=== PATIENT | female | born 1955 | race Two or more races ===

== ENCOUNTER 2024-11-20 10:09 | Inpatient (IN) | payer OTHER ==
[2024-11-20] VITALS (41 sets, daily range): BP systolic 54–147; BP diastolic 33–75; PULSE 61–92; RESP 10–20; TEMP 92.8–98.1; O2SAT 96–100
[~2024-11-20] VITALS: Ht 154.9 cm; Wt 104.7 kg
[2024-11-20] MEDS: TRANEXAMIC ACID 20 ML ONE (09:59)
[~2024-11-20 10:09] MED LIST: ALEN70TA74 PO; ALPR1TAB7 PO; AMLO1TAB23 PO; ASPI81CH59 PO; ATOR40TA52 PO; BISO5TAB44 PO; CHOL100067 PO; CYCL-837 PO; DOCU-94 PO; FAMO-68 PO; FAMO20TA10 GT; FLUT1AER5 IN; LEVO-849 PO; LIOT5TAB31 PO; LORA-622 PO; MONT-8 OR; PANC3000 PO
[2024-11-20] MEDS ORDERED: HYDROmorphone HCL 2 MG/ML VL/or syr ONE (10:56)
[2024-11-20] MEDS ORDERED: fentaNYL CITRATE 5 ML ONE (10:57)
[2024-11-20] MEDS ORDERED: MIDAZOLAM HCL 2MG/2ML 2ml VIAL (1mg/ml) ONE ×2 (10:57→14:19)
[2024-11-20] MEDS ORDERED: fentaNYL CITRATE 100 MCG/2 ML VL ONE (10:57)
[2024-11-20] MEDS: VANCOMYCIN HCL 1000 MG VL ONE (10:57)
--- NOTE | 2024-11-20 11:14 | DVHHP2 ---
Admitting Diagnosis: cervical spinal stenosis History of Present Illness Home Meds Reported Medications Docusate Sodium (Colace) 100 Mg Cap, 100 MG PO DAILY, CAP 11/19/24 Cyclobenzaprine Hcl (Cyclobenzaprine Hcl) 5 Mg Tab, 5 MG PO DAILY, TAB 11/19/24 Aspirin (Aspirin Low Dose) 81 Mg Chw, 81 MG PO DAILY, TAB.CHEW 11/19/24 Famotidine (PEPCID TABLET) 20 Mg Tb, 40 MG GT, TAB 11/19/24 Famotidine (Gnp Acid On Car Supervisor Maximum) 20 Mg Tab, 20 MG PO, TAB 11/19/24 Atorvastatin Calcium (ATORVASTATIN CALCIUM) 40 Mg Tab, 40 MG PO DAILY, TAB 11/19/24 Fluticasone-Salmeterol (Wixela Inhub 100-50 Mcg/Dose) 1 Aer Aer, IN, AER 11/19/24 Pancreatic Enzymes (CREON) 3,000 Unit Cap, 6000 UNIT PO TID, CAP 11/19/24 Cholecalciferol (D3) 250 Mcg Cap, 125 MCG PO DAILY, CAP 11/19/24 Alprazolam (Alprazolam) 1 Mg Tab, 1 MG PO QPM, TAB 11/19/24 Montelukast Sodium (MONTELUKAST SODIUM) 10 Mg Tab, 10 MG OR DAILY, TAB 11/19/24 Bisoprolol Fumarate (Bisoprolol Fumarate) 5 Mg Tab, 10 MG PO DAILY, TAB 11/19/24 Loratadine (Claritin) 10 Mg Tab, 10 MG PO DAILY, TAB 11/19/24 Amlodipine Besylate (Amlodipine Besylate) 10 Mg Tab, 10 MG PO DAILY, TAB 11/19/24 Alendronate Sodium (Alendronate Sodium) 70 Mg Tab, 70 MG PO Q7D, TAB 11/19/24 Liothyronine Sodium (Liothyronine Sodium) 5 Mcg Tab, 5 MCG PO UD, TAB Take 2 tabs ,W,F and 1 tab , ,Sat 11/19/24 Levothyroxine Sodium (SYNTHROID TABLET) 100 Mcg Tb, 100 MCG PO DAILY, TAB 11/19/24 Quality of Neck Pain: Aching, Burning, Sharpness Associated Symptoms of Neck Pa: Numbness in upper extremi, Tingling in upper extremi, Tingling in fingers, Sensory loss Quality of Back Pain: Aching, Burning, Sharpness Review of Systems Constitutional: No symptom reported Ears, Nose, & Throat: No symptom reported Eyes: No symptom reported Pulmonary/Respiratory: No symptom reported Cardiovascular: No symptom reported Gastrointestinal: No symptom reported Genitourinary: No symptom reported Musculoskeletal: Neck pain Skin: No symptom reported Psychiatric: No symptom reported Endocrine: No symptom reported Hemotologic/Lymphatic: No symptom reported H&P Exam Vital Signs Vital Signs Date Time Temp Pulse Resp B/P (MAP) Pulse Ox O2 Delivery O2 Flow Rate FiO2 11/20/24 10:35 97.3 78 16 143/57 (85) 97 97.3 General Appeara: Well developed, Well nourished, Normal Appearance Head Exam: Normal inspection Eye Exam: bilateral eye Normal inspection, bilateral eye PERRL, bilateral eye EOMI Ear Exam: bilateral ear Auricle normal, bilateral ear Canal normal, bilateral ear TM normal Nasal Exam: Normal inspection Mouth: Normal Inspection Pulmonary/Respiratory: Normal inspection, Normal breath sounds, Chest non- tender, Lungs clear Cardiovascular/Chest: Normal inspection, Regular rate, Normal Rhythm Abdominal Exam: Normal bowel sounds, Soft, No tenderness, No hepatospenomegaly, No masses Rectal Exam: Deferred Back Exam: Normal inspection Pelvic Exam: Not done Male Genital Exam: Not done Shoulder Exam: Normal inspection, Non-tender, Normal ROM Elbow/Forearm Exam: Normal inspection, Non-tender, Normal ROM Wrist Exam: Normal inspection, Non-tender, Normal ROM Hand Exam: Normal inspection, Non-tender, Normal ROM Hip exam: Normal inspection, Non-tender, Normal range of motion Legs: bilateral leg non-tender, bilateral leg normal inspection, bilateral leg normal range of motion, bilateral leg no evidence of injury Knees: bilateral knee non-tender, bilateral knee normal inspection, bilateral knee normal range of motion, bilateral knee no evidence of injury Ankle Exam: bilateral ankle Normal inspection, bilateral ankle Non-tender, bilateral ankle Normal range of motion, bilateral ankle No evidence of injury Foot: bilateral foot non-tender, bilateral foot normal inspection, bilateral foot normal range of motion, bilateral foot no evidence of injury Tendon/ Neuro: Motor deficit, Sensory deficit 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: Normal hearing, Normal speech, PERRL Motor/Sensory: Weak motor strength RUE, Weak motor strength LUE Deep Tendon Ref: All intact Neuro/Mental St: Alert, Oriented Appearance: Appropriate appearance, Appropriate insight Eye contact/ Speech: Cooperative, Good eye contact, Normal speech Thoughts/Psych: Normal thought pattern Coordination/Gait: Abnormal gait Skin Exam: Normal inspection Labs/Xrays MRI cervical spine reeals multi level degenerative disc disease with stenosis at C3/4 and C4/5 Assessment/Plan Primary Diagnosis cervical spinal stenosis with myeloradiculopathy Plan admit for elective cervical spine surgery Plan discussed with: Patient CLARICE TAYLOR MD Nov 20, 2024 11:14
[2024-11-20] MEDS ORDERED: PROPOFOL 10 MG/ML 20 ML IV ONE (12:06)
[2024-11-20] MEDS ORDERED: ONDANSETRON HCL 4 MG/2 ML VIAL ONE (12:06)
[2024-11-20] MEDS ORDERED: NITROGLYCERIN 0.4 MG SL TAB SL PRN (13:30)
[2024-11-20] MEDS ORDERED: ACETAMINOPHEN 325 MG TAB PO PRN (13:30)
[2024-11-20] MEDS ORDERED: MORPHINE SULFATE INJ 2 MG/ml SYRG IV PRN ×2 (13:30)
--- NOTE | 2024-11-20 13:43 | DVHOP2 ---
Operative Report - 2 Report Details Date: 11/20/24 Preop Diagnosis: cervical spinal stenosis at C3/4 and 4/5 with severe myeloradiculopathy Postop Diagnosis: same as pre op Surgeon: Zaheer Banerjee MD Inspector Precision Assembly: Celia Tobias NP Anesthesiologist: tania Anesthesia: General Consent: The patient was informed of the risks and benefits of the procedure. These include but are not limited to complications of anesthesia, postoperative infection, incomplete relief of symptoms, recurrence of symptoms, damage to blood vessels, nerves and tendons, deep venous thrombosis, pulmonary embolism and possible need for repeat surgery in the future. Name of Procedure Performed see detailed note Procedure Details Procedure Details: Pre Op Diagnosis: Cervical Degenerative Disk Disease and Spinal Stenosis at C3/4 and C4/5 Causing incapacitating neck pain, myelo-radiculopathy and progr essive neurologic deficit Post Op Diagnosis: same Procedure: Cervical 3 to 4 anterior cervical discectomy with Cervical 3-4 foraminotomies and facetectomies to decompression the spinal canal and Cervical 4 nerve roots Cervical 4 to 5 anterior cervical discectomy with Cervical 4-5 foraminotomies and facetectomies to decompression the spinal canal and Cervical 5 nerve roots Cervical 3-5 anterior cervical Fusion Cervical 3-5 anterior cervical instrumentation with Xtant Irix-C standalone fixation devices Cervical 3-4 placement of allograft prosthetic device Cervical 4-5 placement of allograft prosthetic device Surgeon: Zaheer Banerjee MD Anesthesia: General Assist: Celia Tobias NP Fluids and EBL: see anesthesia note Procedure Note: The patient was seen in the Pre-anesthesia Care Unit and the site of the incision was initialed by me with a felt tipped marker. All questions by the patient were answered to the satisfaction of the patient and the chart was reviewed. The patient was taken to the operating room and placed supine on the [facility] Flat top table. General anesthesia was induced. Neuromonitoring leads were placed. A rolled towel was placed between the shoulder blades to hyperextend out the chest which will allow better exposure of the cervical spine. Halter traction to 10 pounds was placed. The arms were padded and adducted to the patients side making sure all pulses in the hands were present. Tape traction was undertaken on the shoulders to give us better radiographic exposure of the distal cervical spine. A gel-pad was placed under the occiput and 5 degrees of extension was placed on the neck without adverse effects to the patient. The anterior neck was prepped and draped. Pre-operative antibiotics were given 30 minutes prior to the start of the procedure. A c-arm fluoroscope was used to linda out the incision site. Due to this being a two level case, and in order to keep the incision aesthetically pleasing by making it parallel to the skin creases, a transverse incision was chosen from the midline to the anterior border of the sternocleidomastoid at the level of the thyroid cartilage. At this time, a time out was taken per usual protocol. Next an incision was made through the skin with a 15 blade scalpel through the subcutaneous tissue down to the platysma. Self-retainers were placed. The platysma was incised along the longitudinal border with a Metzenbaum scissors. Blunt dissection was made through the deep cervical and pre-tracheal fascia taking care to protect the carotid sheath laterally and the trachea/esophagus medially. The dissection was carried down to the pre- vertebral fascia. Any crossing vessels were ligated using a vascular clip or coagulated with a bovie. An esophageal retractor was next used to retract the trachea/esophagus and a bent [address] through the anterior annulus of the cervical disk and a lateral C-arm fluoroscopic image was taken to confirm that we were at the correct level. Next, bovie electrocautery was used to expose the bones of cervical 3,4,5, and bipolar electrocautery was used to lift up the Longus colli and capitus muscles. Self Retainers were used to retract the longus colli and capitus muscles bilaterally as well as the trachea/esophagus to the right and the carotid sheath to the left. Smooth thin retractors were placed proximally and distally and a needle was placed again in the anterior annulus of the disk and an image taken to confirm the correct level. At this point, an 11 blade scalpel incised the anterior annulus of the cervical 3/4 and 4/5 disks. Next, straight and curved curettes removed the remainder of the disks all the way down to the posterior longitudinal ligament. Carefully, a Kerison number one rongeur incised the posterior longitudinal ligament at the lateral end of the above disks and using a micro, blunt tip nerve hook to separate the posterior longitudinal ligament from the dura, alternating 1 mm and 2 mm Kerison rongeurs removed the posterior longitudinal ligament. Next, Kerison 1mm and 2 mm rongeurs were alternated to get under the uncinate processes and undercut them to perform foraminotomies and facetectomies at the cervical 3/4 and 4/5 levels to decompress the central canal and cervical 4, and 5 nerve roots. Next, the c-arm fluoroscope was wheeled into the field and a lateral image was obtained. Increasing size graft trials were used starting at a 5 mm thick size until the proper tension in the disk space and height quaker obtained. We then placed final free standing cages at C3/4 and 4/5. Both final grafts were 7mm thick. X-tant Iris-C standalone devices were chosen. Satisfactory placement was confirmed in the AP and lateral views using a C-arm fluoroscope. Copious irrigation of the wound with sterile saline and all bleeding was controlled before closure initiated. At this point, a 10 [place] round Esvin Drain was place deep to the platysma muscle and the Platysma was approximated with one interrupted 0-Vicryl suture. The subcutaneous tissue was closed with interrupted 2-0 vicryl sutures and the skin was closed with colt. Sterile dressings were placed and a cervical collar placed, the patient extubated, transferred to the stretcher and taken to the Recovery Room in unremarkable condition. Condition Stable Disposition Still a Patient ZAHEER BANERJEE MD Nov 20, 2024 13:43
[2024-11-20] MEDS ORDERED: Liothyronine Sodium 5 MCG PO SCH (13:45)
[2024-11-20] MEDS ORDERED: SUGAMMADEX 200mg/2ml Vial (100MG/ML) IV ONE (14:04)
--- NOTE | 2024-11-20 14:33 | PRN ---
Misceleneous Note Note Note Patient found to have extremely thin skin, prone to tears. Several sites of irritation to the chest, neck, and skin tears caused by removal or surgical Ioban. one large site to the left upper chest closed with colt. All regular adhesive dressing removed and replaced with 4x4 and paper tape. Some swelling noted to neck right medial side, Called Dr Banerjee to return to bedside to assess. DR Banerjee returned within a few minutes and decided to removed a few colt. No active bleeding at incision when assessed. SANTI drain remains intact. Discussion between Dr Banerjee and Dr Rouse (Anesthesia) determined that for airway safety the patient will remain intubated overnight and go to the ICU. P ACU made aware and warehouse helper aware. Apply ice to neck 20 min per hour x 6. Call with questions Shiva Tobias [facility] Orthopaedic Spine Surgery nurse practitioner For Dr Francisco Banerjee Cell FOR ICU NURSE STAFF ONLY for concerns or questions. Office Patient was examined, chart reviewed, labs evaluated, and diagnostic studies and findings analyzed. Case was discussed with Dr. Zaheer Banerjee who formulated the plan of care. This medical document was created using an electronic medical record system with [employer] computerized dictation system. Although this document has been carefully reviewed, there might still be some phonetic and typographical errors. These areas are purely typographical due to imperfections of the software programs, and do not reflect any compromise in the patient's medical care. CARLOS TOBIAS NP Nov 20, 2024 14:33
--- NOTE | 2024-11-20 14:58 | DVH ---
XY C ARM FLUOROSCOPY UP TO 60MIN, XY CERVICAL SPINE 3V, HISTORY: CERVICAL SPINE TECHNICAL DATA: 15 intraoperative fluoroscopic spot images were obtained of the cervical spine. COMPARISON: None FINDINGS/IMPRESSION: C-arm fluoroscopic images were obtained for anatomic localization. The images are of low resolution b ut demonstrate instrumentation over the cervical spine. Total fluoroscopy time was 39.7 seconds. Plea se see the operative report for further details.
[2024-11-20] MEDS: fentaNYL Drip 2500mCg/250mlNS 250 ML IV ONE (15:00)
[2024-11-20] MEDS: MIDAZOLAM DRIP 50 mg/50mL 50 ML IV SCH (15:00)
[2024-11-20] MEDS: MIDAZOLAM DRIP 50 mg/50mL 50 ML IV ONE (15:00)
[2024-11-20] MEDS: NOREPINEPHRINE 8 MG/250ML KIT 250 ML IV ONE (15:14)
[2024-11-20] MEDS: NOREPINEPHRINE 8 MG/250ML KIT 250 ML IV SCH (15:20)
[2024-11-20 15:29] LABS: Base Excess -9.4 mmol/L (-2.0-3.0)
[2024-11-20] MEDS: fentaNYL Drip 2500mCg/250mlNS 250 ML IV SCH (16:30)
--- NOTE | 2024-11-20 18:08 | DVHINCON2 ---
Date Seen: Nov 20, 2024 Referring Physician Orthopedic spine surgery. Reason for Consultation Acute hypoxic respiratory failure postoperatively remains intubated. History of Present Illness To be noted patient's intubated and sedated most of the history obtained from the chart and from spine surgery note. This is a 69-year-old female with a known history of COPD, hypertension, dyslipidemia, hypothyroidism, chronic neck myeloradiculopathy currently elective surgery for that in which C3-4 see if for five spine surgery was done. After the surgery patient has developed some neck swelling eventually patient was recommended to be remained intubated. Patient is currently in D OU. Plan of care discussed with the bedside RN. Past Medical History COPD Hypertension Dyslipidemia Cervical myeloradiculopathy. Allergies: Coded Allergies: Ciprofloxacin (Verified Allergy, Unknown, 11/19/24) Codeine (Verified Allergy, Unknown, 11/19/24) Diphenhydramine (Verified Allergy, Unknown, 11/19/24) Erythromycin (Verified Allergy, Unknown, 11/19/24) Penicillins (Verified Allergy, Unknown, 11/19/24) Tramadol (Verified Allergy, Unknown, 11/19/24) Home Meds Reported Medications Docusate Sodium (Colace) 100 Mg Cap, 100 MG PO DAILY, CAP 11/19/24 Cyclobenzaprine Hcl (Cyclobenzaprine Hcl) 5 Mg Tab, 5 MG PO DAILY, TAB 11/19/24 Aspirin (Aspirin Low Dose) 81 Mg Chw, 81 MG PO DAILY, TAB.CHEW 11/19/24 Famotidine (PEPCID TABLET) 20 Mg Tb, 40 MG GT, TAB 11/19/24 Famotidine (Gnp Acid Rn Bsn Maximum) 20 Mg Tab, 20 MG PO, TAB 11/19/24 Atorvastatin Calcium (ATORVASTATIN CALCIUM) 40 Mg Tab, 40 MG PO DAILY, TAB 11/19/24 Fluticasone-Salmeterol (Wixela Inhub 100-50 Mcg/Dose) 1 Aer Aer, IN, AER 11/19/24 Pancreatic Enzymes (CREON) 3,000 Unit Cap, 6000 UNIT PO TID, CAP 11/19/24 Cholecalciferol (D3) 250 Mcg Cap, 125 MCG PO DAILY, CAP 11/19/24 Alprazolam (Alprazolam) 1 Mg Tab, 1 MG PO QPM, TAB 11/19/24 Montelukast Sodium (MONTELUKAST SODIUM) 10 Mg Tab, 10 MG OR DAILY, TAB 11/19/24 Bisoprolol Fumarate (Bisoprolol Fumarate) 5 Mg Tab, 10 MG PO DAILY, TAB 11/19/24 Loratadine (Claritin) 10 Mg Tab, 10 MG PO DAILY, TAB 11/19/24 Amlodipine Besylate (Amlodipine Besylate) 10 Mg Tab, 10 MG PO DAILY, TAB 11/19/24 Alendronate Sodium (Alendronate Sodium) 70 Mg Tab, 70 MG PO Q7D, TAB 11/19/24 Liothyronine Sodium (Liothyronine Sodium) 5 Mcg Tab, 5 MCG PO UD, TAB Take 2 tabs M,W,F and 1 tab , ,Sat 11/19/24 Levothyroxine Sodium (SYNTHROID TABLET) 100 Mcg Tb, 100 MCG PO DAILY, TAB 11/19/24 Current Medications Current Medications Medications (Trade) Dose Ordered Sig/Garrick Route PRN Reason Start Time Stop Time Status Last Admin Dextrose/Sodium Chloride 1,000 ml @ 100 mls/hr Q10H IV 11/20/24 13:30 Ondansetron HCl (Zofran) 4 mg Q4HP PRN IV NAUSEA / VOMITING 11/20/24 13:30 Acetaminophen (Tylenol Tablet) 650 mg Q6HP PRN PO MILD PAIN (1-3 PAIN SCALE) 11/20/24 13:30 Acetaminophen/ Hydrocodone Bitart ([place]lin 10/325MG Tab) 1 tab Q6HP PRN PO MODERATE PAIN (4-6 PAIN SCALE) 11/20/24 13:30 Morphine Sulfate 1 mg Q4HP PRN IV SEVERE PAIN (7-10 PAIN SCALE) 11/20/24 13:30 Cyclobenzaprine HCl (Flexeril Tablet) 10 mg TID PO 11/20/24 14:00 Docusate Sodium (Colace Capsule) 100 mg BID PO 11/20/24 22:00 11/20/24 15:29 DC Cefazolin Sodium 50 ml @ 100 mls/hr Q8HR IV 11/20/24 14:00 11/22/24 06:29 Nitroglycerin (Ntrostat Sublingual) 0.4 mg Q5MINP PRN SL FOR CHEST PAIN 11/20/24 13:30 Morphine Sulfate 2 mg Q30M PRN IV FOR CHEST PAIN 11/20/24 13:30 Docusate Sodium (Colace Capsule) 100 mg DAILY PO 11/21/24 10:00 Levothyroxine Sodium (Synthroid Tablet) 100 mcg DAILY PO 11/21/24 10:00 Loratadine (Claritin Tablet) 10 mg DAILY PO 11/21/24 10:00 Montelukast Sodium (Singulair Tablet) 10 mg DAILY PO 11/21/24 10:00 Patient Own Medication 10 mg DAILY PO 11/21/24 10:00 UNV Patient Own Medication 10 mg DAILY PO 11/21/24 10:00 Patient Own Medication 5 mcg UD PO 11/20/24 13:45 Amlodipine Besylate (Norvasc Tablet) 10 mg DAILY PO 11/21/24 10:00 Midazolam HCl 50 ml @ 1 mls/hr Q24H IV 11/20/24 15:00 Fentanyl Citrate 250 ml @ 2.5 mls/hr Q24H IV 11/20/24 15:00 Norepinephrine Bitartrate 250 ml @ 3.75 mls/hr Q24H IV 11/20/24 15:15 11/20/24 15:20 Review of Systems 12 review of system can not be obtained as patient is currently intubated and sedated. 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 Labs/Diagnostic Data Labs Test 11/20/24 15:23 Range/Units Blood Gas Specimen Type Arterial Blood Gas Sample Site Arterial line Blood Gas Patient Temperature 37.0 Arterial Blood Date Drawn [id number] Arterial Blood pH 7.114 *L 7.350-7.450 Arterial Blood Partial Pressure CO2 66.2 *H 32.0-45.0 mmHg Arterial Blood Partial Pressure O2 161.5 H 83.0-108.0 mmHg Arterial Blood HCO3 20.7 L 21.0-28.0 mmol/L Arterial Blood Oxygen Saturation 98.1 H 94.0-98.0 % Arterial Blood Base Excess -9.4 L -2.0-3.0 mmol/L Arterial Blood Oxyhemoglobin 94.0 94.0-98.0 % Arterial Blood Carboxyhemoglobin 3.8 H 0.5-1.5 % Arterial Blood Methemoglobin 0.4 0.0-1.5 % Jethro Test N/a Blood Gas Total Hemoglobin 12.60 12.0-16.0 g/dL Blood Gas Set Respiration Rate 10.0 Blood Gas Modality Vent - ac FiO2 % 50.0 Blood Gas Tidal Volume 400.0 Blood Gas PEEP or CPAP 5.0 Blood Gas Critical Value Read Back Yes Blood Gas Notified Whom Dr. karina de la vega Blood Gas Notified Time [id number] Blood Gas Notified By Rt edinson ga Assessment 69-year-old female with a known history of COPD, hypertension, dyslipidemia, cervical radiculopathy is here for elective surgery. 1. Acute hypoxic respiratory failure requiring continued intubation and sedation secondary to neck edema 2. Acute COPD exacerbation 3. 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 Hypertension 5. Dyslipidemia -continue vent support daily ABG chest x-ray, follow up spine surgery recommendation -pulmonary consultation for vent management Plan discussed with: Other Date of Service: Nov 20, 2024 Billing Provider: LIA MILLER MD Common Visit Codes: NOT BILLABLE LIA MILLER MD Nov 20, 2024 18:08
[2024-11-20] MEDS: D5W/SOD CHLO 0.9% 1,000 ML IV SCH (20:00)
[2024-11-20] MEDS ORDERED: DOCUSATE SOD 100 MG CAP PO SCH (22:00)
[2024-11-20] MEDS: CYCLOBENZAPRINE HCL 10 MG TAB PO SCH (22:00)
[2024-11-20] MEDS: ceFAZolin 1GM/50ML 50 ML IV SCH (22:16)
[2024-11-21] VITALS (95 sets, daily range): BP systolic 81–134; BP diastolic 40–85; PULSE 74–110; RESP 6–26; TEMP 96.4–99.9; O2SAT 89–100
[2024-11-21 03:51] LABS: Hematocrit 36.4 % (36.0-46.0); Hemoglobin 12.4 g/dL (12.2-16.2); Mean Corpuscular Hemoglobin 31.4 pg (28.0-32.0); Mean Corpuscular Volume 92.1 fL (80.0-100.0); Nucleated Red Blood Cells % 0.0 %
[2024-11-21 04:00] LABS: Anion Gap 7 (5-15); Carbon Dioxide 22 mmol/L (20-31); Potassium 4.5 mmol/L (3.5-5.1)
[2024-11-21 04:02] LABS: Calcium 8.0 mg/dL (8.7-10.4); Chloride 116 mmol/L (98-107); Sodium 145 mmol/L (136-145)
[2024-11-21 04:06] LABS: BUN/Creatinine Ratio 13.3 (10.0-20.0); Blood Urea Nitrogen 11 mg/dL (9-23); Glucose 195 mg/dL (74-106)
[2024-11-21 04:07] LABS: Magnesium 1.8 mg/dL (1.6-2.6)
--- NOTE | 2024-11-21 05:26 | DVH ---
CHEST RADIOGRAPH Indication: mechanical ventilation Technique: Single frontal view of the chest was obtained COMPARISON: XR CHEST 2 VIEW on DOS: 11/15/24 FINDINGS: Lines and Tubes: Endotracheal tube is at the level of the thoracic inlet. Recommended advancement by 2 cm. Lungs: Mild pulmonary vascular congestion. Pleura: No effusion. No pneumothorax. Cardiomediastinal contours: Unremarkable. Bones: Unremarkable. IMPRESSION: Endotracheal tube is at the level of the thoracic inlet. Recommended advancement by 2 cm.
[2024-11-21 06:00] LABS: Base Excess -7.2 mmol/L (-2.0-3.0)
[2024-11-21] MEDS: ONDANSETRON HCL 4 MG/2 ML VIAL IV PRN (08:00)
[2024-11-21] MEDS: Bisoprolol Fumarate 10 MG PO SCH (10:00)
[2024-11-21] MEDS: DOCUSATE SOD 100 MG CAP PO SCH (10:00)
[2024-11-21] MEDS ORDERED: PATIENTS OWN MEDICATION (Amlodipine Besylate 10 MG) PO SCH (10:00)
--- NOTE | 2024-11-21 10:59 | DVHPN2 ---
Progress Note - Surgical Date Seen: Nov 21, 2024 Post op day Post op day: 1 Subjective Patient reports: No new complaints, Feels better (RECENTLY EXTUBATED, DOING WELL), Other (intubated sedated in ICU, progressing the extubation per hosp/pulm) Review of Systems: NEURO:Abnormal (occipital headaches, shoulder pain, dixxiness) Objective Vital signs Vital Sign Date Time Temp Pulse Resp B/P (MAP) Pulse Ox O2 Delivery O2 Flow Rate FiO2 11/21/24 10:35 87 20 127/59 (81) 100 30 11/21/24 08:00 Mechanical Ventilator+ 11/21/24 06:15 98.6 209.5 Total Intake and Output 11/20/24 11/20/24 11/21/24 15:00 23:00 07:00 Intake Total 125 ml 167.50 ml 834.0 ml Output Total 0 ml 0 ml 600 ml Balance 125 ml 167.50 ml 234.0 ml Medications Current Medications Medications Dose Ordered Sig/Garrick Route Start Time Stop Time Status Last Admin Dose Admin Dextrose/Sodium Chloride 1,000 ml @ 100 mls/hr Q10H IV 11/20/24 13:30 11/20/24 20:00 100 MLS/HR Ondansetron HCl 4 mg Q4HP PRN IV 11/20/24 13:30 Acetaminophen 650 mg Q6HP PRN PO 11/20/24 13:30 Acetaminophen/ Hydrocodone Bitart 1 tab Q6HP PRN PO 11/20/24 13:30 Morphine Sulfate 1 mg Q4HP PRN IV 11/20/24 13:30 Cyclobenzaprine HCl 10 mg TID PO 11/20/24 14:00 Cefazolin Sodium 50 ml @ 100 mls/hr Q8HR IV 11/20/24 14:00 11/22/24 06:29 11/21/24 05:20 100 MLS/HR Nitroglycerin 0.4 mg Q5MINP PRN SL 11/20/24 13:30 Morphine Sulfate 2 mg Q30M PRN IV 11/20/24 13:30 Docusate Sodium 100 mg DAILY PO 11/21/24 10:00 Levothyroxine Sodium 100 mcg DAILY PO 11/21/24 10:00 Loratadine 10 mg DAILY PO 11/21/24 10:00 Montelukast Sodium 10 mg DAILY PO 11/21/24 10:00 Patient Own Medication 10 mg DAILY PO 11/21/24 10:00 UNV Patient Own Medication 10 mg DAILY PO 11/21/24 10:00 Patient Own Medication 5 mcg UD PO 11/20/24 13:45 Amlodipine Besylate 10 mg DAILY PO 11/21/24 10:00 Midazolam HCl 50 ml @ 1 mls/hr Q24H IV 11/20/24 15:00 Fentanyl Citrate 250 ml @ 2.5 mls/hr Q24H IV 11/20/24 15:00 11/20/24 16:30 2.5 MLS/HR Norepinephrine Bitartrate 250 ml @ 3.75 mls/hr Q24H IV 11/20/24 15:15 11/20/24 15:20 3.75 MLS/HR Laboratory Laboratory Tests 11/21/24 02:52 Test 11/21/24 02:52 Range/Units Serum Glucose 195 H 74-106 mg/dL Examination: GENERAL:Normal (recently extubated. speaking well at this time), HEENT:Normal, NECK:Normal (expected post operative condition, swelling is less to right lateral side.), MSK:Normal, SKIN:Abnormal (skin tears, left anterior neck site colt intact drain intact- DRAIN REMOVED WIHOUT EVENT), NEURO:Normal (no complaints, reports improvment in preop sympt) Problem List/Assessment/Plan Problems: (1) Acute post-operative pain (2) Muscle spasms of neck (3) Endotracheally intubated Assessment and Plan Patient was intubated for airway protection proactively for possible airway/left anterior neck swelling postoperatively overnight- she is extubated as of this assessment. Doing well speaking full sentences, handles secretions. Swelling improved to right lateral neck since surgery date. Patient is able to follow instructions. Pulmonary consult Once extubated and patient is determined to be stable post extubation, the patient may be downgraded Physical therapy to assess and evaluate for safety and recommendations for discharge Advanced diet as tolerated ice chips Call with questions Shiva Tobias [facility] Orthopaedic Spine Surgery nurse practitioner For Dr Francisco Banerjee Office Patient was examined, chart reviewed, labs evaluated, and diagnostic studies and findings analyzed. Case was discussed with Dr. Zaheer Banerjee who formulated the plan of care. This medical document was created using an electronic medical record system with [employer] dictation system. Although this document has been carefully reviewed, there might still be some phonetic and typographical errors. These areas are purely typographical due to imperfections of the software programs, and do not reflect any compromise in the patient's medical care. My Orders My Orders Orders - CARLOS TOBIAS NP Procedure Category Date Status Time Louie Drain To Closed FORD 11/20/24 In Process Suction 14:15 Communication Order ORDERS 11/20/24 Transmitted 14:15 Communication Order ORDERS 11/20/24 Transmitted 14:15 Ice Bags FORD 11/20/24 In Process 14:33 Plan discussed with Plan discussed with: Patient Visit Coding Surgery Date of Service if different f: Nov 20, 2024 Billing Provider: CARLOS TOBIAS NP Surgery Visit Codes: NOT BILLABLE CARLOS TOBIAS NP Nov 21, 2024 10:59
--- NOTE | 2024-11-21 11:04 | DVHINCON2 ---
Date of service: Nov 20, [address] Woodward Reason for Consultation vent management History of Present Illness HPI pt is a 69 yo female pt with h/o htn, hypothyroidism, copd/asthma, Raynaud's disease and arthritis. Pt required cervical vertebral fusion and post-op remains on the vent due to increasing neck swelling: concern for airway protection. Pt transferred to ICU for further management Home Meds Reported Medications Docusate Sodium (Colace) 100 Mg Cap, 100 MG PO DAILY, CAP 11/19/24 Cyclobenzaprine Hcl (Cyclobenzaprine Hcl) 5 Mg Tab, 5 MG PO DAILY, TAB 11/19/24 Aspirin (Aspirin Low Dose) 81 Mg Chw, 81 MG PO DAILY, TAB.CHEW 11/19/24 Famotidine (PEPCID TABLET) 20 Mg Tb, 40 MG GT, TAB 11/19/24 Famotidine (Gnp Acid Neurophysiological Technician Maximum) 20 Mg Tab, 20 MG PO, TAB 11/19/24 Atorvastatin Calcium (ATORVASTATIN CALCIUM) 40 Mg Tab, 40 MG PO DAILY, TAB 11/19/24 Fluticasone-Salmeterol (Wixela Inhub 100-50 Mcg/Dose) 1 Aer Aer, IN, AER 11/19/24 Pancreatic Enzymes (CREON) 3,000 Unit Cap, 6000 UNIT PO TID, CAP 11/19/24 Cholecalciferol (D3) 250 Mcg Cap, 125 MCG PO DAILY, CAP 11/19/24 Alprazolam (Alprazolam) 1 Mg Tab, 1 MG PO QPM, TAB 11/19/24 Montelukast Sodium (MONTELUKAST SODIUM) 10 Mg Tab, 10 MG OR DAILY, TAB 11/19/24 Bisoprolol Fumarate (Bisoprolol Fumarate) 5 Mg Tab, 10 MG PO DAILY, TAB 11/19/24 Loratadine (Claritin) 10 Mg Tab, 10 MG PO DAILY, TAB 11/19/24 Amlodipine Besylate (Amlodipine Besylate) 10 Mg Tab, 10 MG PO DAILY, TAB 11/19/24 Alendronate Sodium (Alendronate Sodium) 70 Mg Tab, 70 MG PO Q7D, TAB 11/19/24 Liothyronine Sodium (Liothyronine Sodium) 5 Mcg Tab, 5 MCG PO UD, TAB Take 2 tabs M,W,F and 1 tab , Thurs,Sat 11/19/24 Levothyroxine Sodium (SYNTHROID TABLET) 100 Mcg Tb, 100 MCG PO DAILY, TAB 11/19/24 Past Medical History Cardiac: HTN Pulmonary: COPD Central Nervous System: No pertinent Hx GI: No pertinent Hx Hemotology/Oncology: No pertinent Hx Hepatobiliary: No pertinent Hx Psychiatric: No pertinent Hx Musculoskeletal: No pertinent Hx Rheumotologic: No pertinent Hx Infectious Disease: No peritnent Hx ENT: No pertinent Hx Renal/: No pertinent Hx Endocrine: No pertinent Hx Dermatology: No pertinent Hx Past Surgical History: Other (cervical fusion) Patient Family History: Arthritis Diabetes mellitus G8 FATHER Glaucoma G8 BROTHER Review of Systems Comments intubated H&P Exam Vital Signs Vital Signs Date Time Temp Pulse Resp B/P (MAP) Pulse Ox O2 Delivery O2 Flow Rate FiO2 11/21/24 10:35 87 20 127/59 (81) 100 30 11/21/24 10:00 Mechanical Ventilator+ 11/21/24 06:15 98.6 209.5 General Appeara: Well developed, Well nourished, Normal Appearance Head Exam: Normal inspection Neck Exam: Other (swelling) Eye Exam: bilateral eye Normal inspection, bilateral eye PERRL Ear Exam: bilateral ear Auricle normal, bilateral ear Canal normal Nasal Exam: Normal inspection Mouth: Normal Inspection Pulmonary/Respiratory: Normal inspection, Normal breath sounds Cardiovascular/Chest: Normal inspection Peripheral Pulses: 4+ carotid (R), 4+ carotid (L) Abdominal Exam: Normal bowel sounds, Soft Labs/Xrays Labs Test 11/21/24 05:55 11/21/24 02:52 11/20/24 15:23 Range/Units Blood Gas Specimen Type Arterial Blood Gas Sample Site Arterial line Blood Gas Patient Temperature 37.0 Arterial Blood Date Drawn [id number] Arterial Blood pH 7.324 L 7.350-7.450 Arterial Blood Partial Pressure CO2 35.5 32.0-45.0 mmHg Arterial Blood Partial Pressure O2 118.8 H 83.0-108.0 mmHg Arterial Blood HCO3 18.0 L 21.0-28.0 mmol/L Arterial Blood Oxygen Saturation 97.7 94.0-98.0 % Arterial Blood Base Excess -7.2 L -2.0-3.0 mmol/L Arterial Blood Oxyhemoglobin 96.2 94.0-98.0 % Arterial Blood Carboxyhemoglobin 0.9 0.5-1.5 % Arterial Blood Methemoglobin 0.6 0.0-1.5 % Jethro Test N/a Blood Gas Total Hemoglobin 12.70 12.0-16.0 g/dL Blood Gas Set Respiration Rate 14.0 Blood Gas Modality Vent - ac FiO2 % 30.0 Blood Gas Tidal Volume 400.0 Blood Gas PEEP or CPAP 5.0 White Blood Count 14.2 H 4.4-10.8 10^3/uL Red Blood Count 3.95 L 4.0-5.20 10^6/uL Hemoglobin 12.4 12.2-16.2 g/dL Hematocrit 36.4 36.0-46.0 % Mean Corpuscular Volume 92.1 80.0-100.0 fL Mean Corpuscular Hemoglobin 31.4 28.0-32.0 pg Mean Corpuscular Hemoglobin Concent 34.1 32.0-36.0 g/dL Red Cell Distribution Width 14.0 11.8-14.3 % Platelet Count 250 140-450 10^3/uL Mean Platelet Volume 8.5 6.9-10.8 fL Neutrophils (%) (Auto) 89.0 H 37.0-80.0 % Lymphocytes (%) (Auto) 5.6 L 10.0-50.0 % Monocytes (%) (Auto) 5.3 0.0-12.0 % Eosinophils (%) (Auto) 0.0 0.0-7.0 % Basophils (%) (Auto) 0.1 0.0-2.0 % Neutrophils # (Auto) 12.6 H 1.6-8.6 10 ^3/uL Lymphocytes # (Auto) 0.8 0.4-5.4 10 ^3/uL Monocytes # (Auto) 0.7 0-1.3 10 ^3/uL Eosinophils # (Auto) 0 0-0.8 10 ^3/uL Basophils # (Auto) 0 0-0.2 10 ^3/uL Nucleated Red Blood Cells 0.0 % Sodium Level 145 136-145 mmol/L Potassium Level 4.5 3.5-5.1 mmol/L Chloride Level 116 H 98-107 mmol/L Carbon Dioxide Level 22 20-31 mmol/L Anion Gap 7 5-15 Blood Urea Nitrogen 11 9-23 mg/dL Creatinine 0.83 0.550-1.02 mg/dL Glomerular Filtration Rate Calc 75 >90 mL/min BUN/Creatinine Ratio 13.3 10.0-20.0 Serum Glucose 195 H 74-106 mg/dL Calcium Level 8.0 L 8.7-10.4 mg/dL Magnesium Level 1.8 1.6-2.6 mg/dL Blood Gas Critical Value Read Back Yes Blood Gas Notified Whom Dr. karina de la vega Blood Gas Notified Time [id number] Blood Gas Notified By [facility]t [place] Assessment/Plan Plan acute hypoxemic resp failure copd/asthma atelectases neck swelling s/p cervical vertebral fusion pt seen and examined on ICU labs and imaging reviewed plan sedation overnight sedation holiday in am precedx ok weaning trail check for cuff leak PS 08/11 abg and parameters cont pain control IV fluids monitor labs renal function prophylaxis dvt proph full code crit care time 35 min Plan discussed with: Other (rn) JANE GAGNON MD Nov 21, 2024 11:04
--- NOTE | 2024-11-21 11:42 | DVHPN2 ---
Progress Note - Dictate Date Seen: Nov 21, 2024 Has the PT tested + for MRSA If YES, has PT been informed?: No Medical Necessity Reason Pt with a Central, PICC or Fol: No vital signs Vital Sign Date Time Temp Pulse Resp B/P (MAP) Pulse Ox O2 Delivery O2 Flow Rate FiO2 11/21/24 11:00 98.8 77 14 118/53 (74) 97 209.8 122/53 (76) 11/21/24 10:35 30 11/21/24 10:00 Mechanical Ventilator+ Total Intake and Output 11/20/24 11/20/24 11/21/24 15:00 23:00 07:00 Intake Total 125 ml 167.50 ml 834.0 ml Output Total 0 ml 0 ml 600 ml Balance 125 ml 167.50 ml 234.0 ml medications Current Medications Medications Dose Ordered Sig/Garrick Route Start Time Stop Time Status Last Admin Dose Admin Dextrose/Sodium Chloride 1,000 ml @ 100 mls/hr Q10H IV 11/20/24 13:30 11/20/24 20:00 100 MLS/HR Ondansetron HCl 4 mg Q4HP PRN IV 11/20/24 13:30 Acetaminophen 650 mg Q6HP PRN PO 11/20/24 13:30 Acetaminophen/ Hydrocodone Bitart 1 tab Q6HP PRN PO 11/20/24 13:30 Morphine Sulfate 1 mg Q4HP PRN IV 11/20/24 13:30 Cyclobenzaprine HCl 10 mg TID PO 11/20/24 14:00 Cefazolin Sodium 50 ml @ 100 mls/hr Q8HR IV 11/20/24 14:00 11/22/24 06:29 11/21/24 05:20 100 MLS/HR Nitroglycerin 0.4 mg Q5MINP PRN SL 11/20/24 13:30 Morphine Sulfate 2 mg Q30M PRN IV 11/20/24 13:30 Docusate Sodium 100 mg DAILY PO 11/21/24 10:00 Levothyroxine Sodium 100 mcg DAILY PO 11/21/24 10:00 Loratadine 10 mg DAILY PO 11/21/24 10:00 Montelukast Sodium 10 mg DAILY PO 11/21/24 10:00 Patient Own Medication 10 mg DAILY PO 11/21/24 10:00 UNV Patient Own Medication 10 mg DAILY PO 11/21/24 10:00 Patient Own Medication 5 mcg UD PO 11/20/24 13:45 Amlodipine Besylate 10 mg DAILY PO 11/21/24 10:00 Midazolam HCl 50 ml @ 1 mls/hr Q24H IV 11/20/24 15:00 Fentanyl Citrate 250 ml @ 2.5 mls/hr Q24H IV 11/20/24 15:00 11/20/24 16:30 2.5 MLS/HR Norepinephrine Bitartrate 250 ml @ 3.75 mls/hr Q24H IV 11/20/24 15:15 11/20/24 15:20 3.75 MLS/HR laboratory and microbiology Laboratory Tests 11/21/24 02:52 Test 11/21/24 02:52 Range/Units Serum Glucose 195 H 74-106 mg/dL Assessment/Plan acute hypoxemic resp failure copd/asthma atelectases neck swelling s/p cervical vertebral fusion pt seen and examined on ICU events improving pt received a dose of decadron awake and following commands labs and imaging reviewed management plan weaning trail check for cuff leak PS 7/5 abg and parameters extubate today incent spirometry cont pain control IV fluids monitor labs renal function prophylaxis dvt proph full code crit care time 35 min Dietary Evaluation Review Comments: 1. If EN/GI accessible, TF, Vital high Protein 45ml/hr 94g Protein, 1080kcal, 903ml free water 2, If EN not feasible and GI unaccessible, TPN per pharmacy to meet at least 75% of her protein and energy needs. 3. Advance to Regular diet after passing EVENT PROMOTIONS COORDINATOR eval Expected Outcomes/Goals: Off Vent, advance to diet Plan discussed with: Other (rn) JANE GAGNON MD Nov 21, 2024 11:42
--- NOTE | 2024-11-21 12:23 | DVH ---
INDICATION: NG tube placement TECHNIQUE: Frontal view of the chest. COMPARISON: XY CHEST PORTABLE on DOS: 11/21/24, XR CHEST 2 VIEW on DOS: 11/15/24 FINDINGS: Endotracheal tube terminates 5.7 cm above the brandy . NG tube is in place with tip below the diaphr agm. The heart and mediastinal contours are grossly unremarkable. There is no evidence of pleural disease. The lungs are clear. The bony structures of the chest are intact without fracture. ACDF h ardware is seen in mid cervical spine. Surgical drain and skin colt are seen on the left neck. IMPRESSION: 1. No evidence of acute disease. 2. Tubes and lines as above.
[2024-11-21] MEDS: LORATADINE 10 MG TAB PO SCH (12:33)
[2024-11-21] MEDS: MONTELUKAST SODIUM 10 MG TAB PO SCH (12:34)
[2024-11-21] MEDS: LEVOTHYROXINE SODIUM 100 MCG TAB PO SCH (12:34)
[2024-11-21] MEDS: HYDROcodone-ACET 10/325MG TAB PO PRN (12:38)
[2024-11-21] MEDS ORDERED: ROCURONIUM 10MG/ML 10ML VIAL IV ONE (13:02)
--- NOTE | 2024-11-21 17:16 | DVHPN2 ---
Subjective Patient is status post extubation. Changes from previous H/P or p: No Changes Objective Vitals Vital Signs Date Time Temp Pulse Resp B/P (MAP) Pulse Ox O2 Delivery O2 Flow Rate FiO2 11/21/24 16:45 92 12 108/49 (68) 97 11/21/24 16:00 Mechanical Ventilator+ 30 30 11/21/24 15:45 99.9 211.8 Intake/Output Intake and Output 11/21/24 07:00 Intake Total 1126.50 ml Output Total 600 ml Balance 526.50 ml Intake Oral 0 ml IV Total 1126.50 ml Output Urine Total 600 ml Drainage Total 0 ml Exam HEENT pupils are reactive Neck is supple CV is S1-S2 regular rate and rhythm Respiratory diminished breath sound bases GI posterior bowel sound Extremity no edema INTERLACER no motor deficit Medications Current Medications Medications Dose Ordered Sig/Garrick Route Start Time Stop Time Status Last Admin Dose Admin Dextrose/Sodium Chloride 1,000 ml @ 100 mls/hr Q10H IV 11/20/24 13:30 11/20/24 20:00 100 MLS/HR Ondansetron HCl 4 mg Q4HP PRN IV 11/20/24 13:30 11/21/24 14:22 4 MG Acetaminophen 650 mg Q6HP PRN PO 11/20/24 13:30 Acetaminophen/ Hydrocodone Bitart 1 tab Q6HP PRN PO 11/20/24 13:30 11/21/24 12:38 1 TAB Morphine Sulfate 1 mg Q4HP PRN IV 11/20/24 13:30 Cyclobenzaprine HCl 10 mg TID PO 11/20/24 14:00 Cefazolin Sodium 50 ml @ 100 mls/hr Q8HR IV 11/20/24 14:00 11/22/24 06:29 11/21/24 15:08 100 MLS/HR Nitroglycerin 0.4 mg Q5MINP PRN SL 11/20/24 13:30 Morphine Sulfate 2 mg Q30M PRN IV 11/20/24 13:30 Docusate Sodium 100 mg DAILY PO 11/21/24 10:00 Levothyroxine Sodium 100 mcg DAILY PO 11/21/24 10:00 11/21/24 12:34 100 MCG Loratadine 10 mg DAILY PO 11/21/24 10:00 11/21/24 12:33 10 MG Montelukast Sodium 10 mg DAILY PO 11/21/24 10:00 11/21/24 12:34 10 MG Patient Own Medication 10 mg DAILY PO 11/21/24 10:00 UNV Patient Own Medication 10 mg DAILY PO 11/21/24 10:00 Patient Own Medication 5 mcg UD PO 11/20/24 13:45 Amlodipine Besylate 10 mg DAILY PO 11/21/24 10:00 Norepinephrine Bitartrate 250 ml @ 3.75 mls/hr Q24H IV 11/20/24 15:15 11/20/24 15:20 3.75 MLS/HR Alprazolam 1 mg HS PO 11/21/24 22:00 Famotidine 40 mg Q24H PO 11/21/24 22:00 Laboratory Results Laboratory Tests 11/21/24 02:52 Chemistry Test 11/21/24 02:52 Calcium Level 8.0 mg/dL (8.7-10.4) L Magnesium Level 1.8 mg/dL (1.6-2.6) Blood Gas Results Test 11/21/24 05:55 Arterial Blood pH 7.324 (7.350-7.450) FiO2 % 30.0 Microbiology Microbiology Date/Time Source Procedure Growth Status 11/20/24 16:00 Nose MRSA Screen - Final Complete Assessment/Plan Assessment/Plan 69-year-old female with a known history of COPD, hypertension, dyslipidemia, cervical radiculopathy is here for elective surgery. 1. Acute hypoxic respiratory failure requiring continued intubation and sedation secondary to neck edema 2. Acute COPD exacerbation 3. 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 Hypertension 5. Dyslipidemia -CPAP trial today extubation today may downgrade to telemetry Plan discussed with: Patient My Orders Orders - LIA MILLER MD Procedure Category Date Status Time *Consult CONS 11/20/24 Verified 18:03 * Dietary Consult CONS 11/20/24 Transmitted 19:05 * Wound Consult CONS 11/20/24 Transmitted 19:05 Chest Portable XY 11/21/24 Resulted 04:00 Abg W/ Co-Ox RT 11/21/24 Logged 04:00 Place Ng ORDERS 11/21/24 Transmitted 10:40 Chest Portable XY 11/21/24 Resulted 10:40 Alprazolam Tablet PHA 11/21/24 In Process (Xanax Tablet) 22:00 Famotidine Tablet PHA 11/21/24 In Process (Pepcid Tablet) 22:00 Date of Service: Nov 21, 2024 Billing Provider: LIA MILLER MD Common Visit Codes: NOT BILLABLE LIA MILLER MD Nov 21, 2024 17:16
[2024-11-21] MEDS: FAMOTIDINE 20 MG TAB PO SCH (21:52)
[2024-11-21] MEDS: ALPRAZolam 0.5 MG TAB PO SCH (21:53)
[2024-11-22] VITALS (49 sets, daily range): BP systolic 99–148; BP diastolic 48–70; PULSE 93–114; RESP 11–17; TEMP 98.7–99.5; O2SAT 90–99
--- NOTE | 2024-11-22 14:14 | DVHPN2 ---
Progress Note - Dictate Date Seen: Nov 22, 2024 Medical Necessity Reason Pt with a Central, PICC or Fol: No vital signs Vital Sign Date Time Temp Pulse Resp B/P (MAP) Pulse Ox O2 Delivery O2 Flow Rate FiO2 11/22/24 14:00 17 93 Nasal Cannula* 2 28 11/22/24 14:00 114 11/22/24 13:00 129/63 (85) 11/22/24 12:00 99.0 99.0 Total Intake and Output 11/21/24 11/21/24 11/22/24 15:00 23:00 07:00 Intake Total 66.25 ml 450 ml 880 ml Output Total 1150 ml Balance 66.25 ml 450 ml -270 ml medications Current Medications Medications Dose Ordered Sig/Garrick Route Start Time Stop Time Status Last Admin Dose Admin Dextrose/Sodium Chloride 1,000 ml @ 100 mls/hr Q10H IV 11/20/24 13:30 11/22/24 05:31 100 MLS/HR Ondansetron HCl 4 mg Q4HP PRN IV 11/20/24 13:30 11/21/24 14:22 4 MG Acetaminophen 650 mg Q6HP PRN PO 11/20/24 13:30 Acetaminophen/ Hydrocodone Bitart 1 tab Q6HP PRN PO 11/20/24 13:30 11/21/24 12:38 1 TAB Morphine Sulfate 1 mg Q4HP PRN IV 11/20/24 13:30 Cyclobenzaprine HCl 10 mg TID PO 11/20/24 14:00 11/22/24 13:49 10 MG Nitroglycerin 0.4 mg Q5MINP PRN SL 11/20/24 13:30 Morphine Sulfate 2 mg Q30M PRN IV 11/20/24 13:30 Docusate Sodium 100 mg DAILY PO 11/21/24 10:00 Levothyroxine Sodium 100 mcg DAILY PO 11/21/24 10:00 11/22/24 10:10 100 MCG Loratadine 10 mg DAILY PO 11/21/24 10:00 11/22/24 10:10 10 MG Montelukast Sodium 10 mg DAILY PO 11/21/24 10:00 11/22/24 10:10 10 MG Patient Own Medication 10 mg DAILY PO 11/21/24 10:00 UNV Patient Own Medication 10 mg DAILY PO 11/21/24 10:00 Patient Own Medication 5 mcg UD PO 11/20/24 13:45 Amlodipine Besylate 10 mg DAILY PO 11/21/24 10:00 11/22/24 10:10 10 MG Norepinephrine Bitartrate 250 ml @ 3.75 mls/hr Q24H IV 11/20/24 15:15 11/20/24 15:20 3.75 MLS/HR Alprazolam 1 mg HS PO 11/21/24 22:00 11/21/24 21:53 1 MG Famotidine 40 mg Q24H PO 11/21/24 22:00 11/21/24 21:52 40 MG laboratory and microbiology Laboratory Tests 11/21/24 02:52 Test 11/21/24 02:52 Range/Units Serum Glucose 195 H 74-106 mg/dL Assessment/Plan acute hypoxemic resp failure copd/asthma atelectases neck swelling s/p cervical vertebral fusion pt seen and examined on ICU events improving pt received a dose of decadron awake and following commands labs and imaging reviewed management plan weaning trail check for cuff leak PS 7/5 abg and parameters extubate today incent spirometry cont pain control IV fluids monitor labs renal function prophylaxis dvt proph full code crit care time 35 min Dietary Evaluation Review Comments: 1. If EN/GI accessible, TF, Vital high Protein 45ml/hr 94g Protein, 1080kcal, 903ml free water 2, If EN not feasible and GI unaccessible, TPN per pharmacy to meet at least 75% of her protein and energy needs. 3. Advance to Regular diet after passing WINDOWS ARCHITECT eval Expected Outcomes/Goals: Off Vent, advance to diet Plan discussed with: Patient, Other JANE GAGNON MD Nov 22, 2024 14:14
--- NOTE | 2024-11-22 15:52 | DVHPN2 ---
Subjective Patient is status post extubation. Swallow evaluation still pending. Patient is downgraded to telemetry but still physically she is in D OU. Changes from previous H/P or p: No Changes Objective Vitals Vital Signs Date Time Temp Pulse Resp B/P (MAP) Pulse Ox O2 Delivery O2 Flow Rate FiO2 11/22/24 14:00 17 93 Nasal Cannula* 2 28 11/22/24 14:00 100 129/64 (85) 11/22/24 12:00 99.0 99.0 Intake/Output Intake and Output 11/22/24 07:00 Intake Total 1396.25 ml Output Total 1150 ml Balance 246.25 ml Intake Oral 30 ml IV Total 1366.25 ml Output Urine Total 1150 ml Exam HEENT pupils are reactive Neck is supple CV is S1-S2 regular rate and rhythm Respiratory diminished breath sound bases GI posterior bowel sound Extremity no edema SHRUB GROWER no motor deficit Medications Current Medications Medications Dose Ordered Sig/Garrick Route Start Time Stop Time Status Last Admin Dose Admin Dextrose/Sodium Chloride 1,000 ml @ 100 mls/hr Q10H IV 11/20/24 13:30 11/22/24 05:31 100 MLS/HR Ondansetron HCl 4 mg Q4HP PRN IV 11/20/24 13:30 11/21/24 14:22 4 MG Acetaminophen 650 mg Q6HP PRN PO 11/20/24 13:30 Acetaminophen/ Hydrocodone Bitart 1 tab Q6HP PRN PO 11/20/24 13:30 11/21/24 12:38 1 TAB Morphine Sulfate 1 mg Q4HP PRN IV 11/20/24 13:30 Cyclobenzaprine HCl 10 mg TID PO 11/20/24 14:00 11/22/24 13:49 10 MG Nitroglycerin 0.4 mg Q5MINP PRN SL 11/20/24 13:30 Morphine Sulfate 2 mg Q30M PRN IV 11/20/24 13:30 Docusate Sodium 100 mg DAILY PO 11/21/24 10:00 Levothyroxine Sodium 100 mcg DAILY PO 11/21/24 10:00 11/22/24 10:10 100 MCG Loratadine 10 mg DAILY PO 11/21/24 10:00 11/22/24 10:10 10 MG Montelukast Sodium 10 mg DAILY PO 11/21/24 10:00 11/22/24 10:10 10 MG Patient Own Medication 10 mg DAILY PO 11/21/24 10:00 UNV Patient Own Medication 10 mg DAILY PO 11/21/24 10:00 Patient Own Medication 5 mcg UD PO 11/20/24 13:45 Amlodipine Besylate 10 mg DAILY PO 11/21/24 10:00 11/22/24 10:10 10 MG Norepinephrine Bitartrate 250 ml @ 3.75 mls/hr Q24H IV 11/20/24 15:15 11/20/24 15:20 3.75 MLS/HR Alprazolam 1 mg HS PO 11/21/24 22:00 11/21/24 21:53 1 MG Famotidine 40 mg Q24H PO 11/21/24 22:00 11/21/24 21:52 40 MG Laboratory Results Laboratory Tests 11/21/24 02:52 Microbiology Microbiology Date/Time Source Procedure Growth Status 11/20/24 16:00 Nose MRSA Screen - Final Complete Assessment/Plan Assessment/Plan 69-year-old female with a known history of COPD, hypertension, dyslipidemia, cervical radiculopathy is here for elective surgery. 1. Acute hypoxic respiratory failure requiring continued intubation and sedation secondary to neck edema , status post extubation 2. Acute COPD exacerbation improved 3. 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 Hypertension 5. Dyslipidemia -swallow evaluation, PT evaluation and treatment, discharge plan per-Orthopedics -Patient is medically stable to be discharged Plan discussed with: Patient My Orders Orders - LIA MILLER MD Procedure Category Date Status Time * Swallow Request ST 11/21/24 Transmitted 19:31 Date of Service: Nov 22, 2024 Billing Provider: LIA MILLER MD Common Visit Codes: NOT BILLABLE LIA MILLER MD Nov 22, 2024 15:52
--- NOTE | 2024-11-22 17:12 | DVHPN2 ---
Progress Note - Surgical Date Seen: Nov 22, 2024 Post op day Post op day: 2 Subjective Patient reports: No new complaints, Feels better Review of Systems: NEURO:Abnormal (Patient claims severe occipital headaches and bilateral extreme shoulder pain) Objective Vital signs Vital Sign Date Time Temp Pulse Resp B/P (MAP) Pulse Ox O2 Delivery O2 Flow Rate FiO2 11/22/24 16:28 14 93 Nasal Cannula* 2 28 11/22/24 16:00 99.4 107 103/61 (75) 99.4 Total Intake and Output 11/21/24 11/21/24 11/22/24 15:00 23:00 07:00 Intake Total 66.25 ml 450 ml 880 ml Output Total 1150 ml Balance 66.25 ml 450 ml -270 ml Medications Current Medications Medications Dose Ordered Sig/Garrick Route Start Time Stop Time Status Last Admin Dose Admin Dextrose/Sodium Chloride 1,000 ml @ 100 mls/hr Q10H IV 11/20/24 13:30 11/22/24 16:09 100 MLS/HR Ondansetron HCl 4 mg Q4HP PRN IV 11/20/24 13:30 11/21/24 14:22 4 MG Acetaminophen 650 mg Q6HP PRN PO 11/20/24 13:30 Acetaminophen/ Hydrocodone Bitart 1 tab Q6HP PRN PO 11/20/24 13:30 11/21/24 12:38 1 TAB Morphine Sulfate 1 mg Q4HP PRN IV 11/20/24 13:30 Cyclobenzaprine HCl 10 mg TID PO 11/20/24 14:00 11/22/24 13:49 10 MG Nitroglycerin 0.4 mg Q5MINP PRN SL 11/20/24 13:30 Morphine Sulfate 2 mg Q30M PRN IV 11/20/24 13:30 Docusate Sodium 100 mg DAILY PO 11/21/24 10:00 Levothyroxine Sodium 100 mcg DAILY PO 11/21/24 10:00 11/22/24 10:10 100 MCG Loratadine 10 mg DAILY PO 11/21/24 10:00 11/22/24 10:10 10 MG Montelukast Sodium 10 mg DAILY PO 11/21/24 10:00 11/22/24 10:10 10 MG Patient Own Medication 10 mg DAILY PO 11/21/24 10:00 UNV Patient Own Medication 10 mg DAILY PO 11/21/24 10:00 Patient Own Medication 5 mcg UD PO 11/20/24 13:45 Amlodipine Besylate 10 mg DAILY PO 11/21/24 10:00 11/22/24 10:10 10 MG Norepinephrine Bitartrate 250 ml @ 3.75 mls/hr Q24H IV 11/20/24 15:15 11/20/24 15:20 3.75 MLS/HR Alprazolam 1 mg HS PO 11/21/24 22:00 11/21/24 21:53 1 MG Famotidine 40 mg Q24H PO 11/21/24 22:00 11/21/24 21:52 40 MG Laboratory Laboratory Tests 11/21/24 02:52 Test 11/21/24 02:52 Range/Units Serum Glucose 195 H 74-106 mg/dL Microbiology Date/Time Source Procedure Growth Status 11/20/24 16:00 Nose MRSA Screen - Final Complete Examination: GENERAL:Normal, HEENT:Normal, NECK:Normal (Wound edges well approximated with colt, patient does have a sore throat and painful swallowing medications ordered pending swallow evaluation), LUNGS:Normal, CVS:Normal, ABDOMEN:Normal, MSK:Normal (Patient has yet to ambulate with physical therapy), SKIN:Normal (Left anterior neck incision closed with colt, drain site remains scant drainage present), NEURO:Normal (Patient states her occipital headache has resolved and she is still having some mild residual bilateral shoulder pain) Problem List/Assessment/Plan Problems: (1) Acute post-operative pain (2) Muscle spasms of neck Assessment and Plan Patient was intubated for airway protection proactively for possible airway/left anterior neck swelling postoperatively overnight- she is extubated as of this assessment. Doing well speaking full sentences, handles secretions. Patient is still having residual sore throat and some difficulty swallowing water. Waiting for an official swallow evaluation. Patient has also not been up to ambulate yet Swelling improved to right lateral neck since surgery date Patient downgraded remains in TIM Side nursing swallow eval done, trouble with water pending official swallow evaluation by speech therapy Physical therapy to assess and evaluate for safety and recommendations for discharge- still pending Advanced diet as tolerated ice chips, Decadron, and Cepacol Call with questions Shiva Tobias [facility] Orthopaedic Spine Surgery nurse practitioner For Dr Francisco Banerjee Office Patient was examined, chart reviewed, labs evaluated, and diagnostic studies and findings analyzed. Case was discussed with Dr. Zaheer Banerjee who formulated the plan of care. This medical document was created using an electronic medical record system with ipsy dictation system. Although this document has been carefully reviewed, there might still be some phonetic and typographical errors. These areas are purely typographical due to imperfections of the software programs, and do not reflect any compromise in the patient's medical care. Plan discussed with Plan discussed with: Patient, Other Visit Coding Surgery Date of Service if different f: Nov 20, 2024 Billing Provider: CARLOS TOBIAS NP Surgery Visit Codes: NOT BILLABLE CARLOS TOBIAS NP Nov 22, 2024 17:12
[2024-11-22] MEDS: THROAT LOZENGES(CEPASTAT) MT PRN (20:13)
[2024-11-23] VITALS (11 sets, daily range): BP systolic 113–144; BP diastolic 67–82; PULSE 86–114; RESP 13–18; TEMP 97–98.3; O2SAT 93–99
--- NOTE | 2024-11-23 12:17 | DVHPN2 ---
Progress Note - Dictate Date Seen: Nov 23, 2024 Medical Necessity Reason Pt with a Central, PICC or Fol: No vital signs Vital Sign Date Time Temp Pulse Resp B/P (MAP) Pulse Ox O2 Delivery O2 Flow Rate FiO2 11/23/24 09:23 124/71 11/23/24 09:00 97.8 86 17 99 97.8 11/23/24 07:55 Nasal Cannula* 2 28 Total Intake and Output 11/22/24 11/22/24 11/23/24 15:00 23:00 07:00 Intake Total 800 ml 800 ml 300 ml Output Total 650 ml 2100 ml 1000 ml Balance 150 ml -1300 ml -700 ml medications Current Medications Medications Dose Ordered Sig/Garrick Route Start Time Stop Time Status Last Admin Dose Admin Dextrose/Sodium Chloride 1,000 ml @ 100 mls/hr Q10H IV 11/20/24 13:30 11/22/24 16:09 100 MLS/HR Ondansetron HCl 4 mg Q4HP PRN IV 11/20/24 13:30 11/21/24 14:22 4 MG Acetaminophen 650 mg Q6HP PRN PO 11/20/24 13:30 Acetaminophen/ Hydrocodone Bitart 1 tab Q6HP PRN PO 11/20/24 13:30 11/21/24 12:38 1 TAB Morphine Sulfate 1 mg Q4HP PRN IV 11/20/24 13:30 Cyclobenzaprine HCl 10 mg TID PO 11/20/24 14:00 11/23/24 06:02 10 MG Nitroglycerin 0.4 mg Q5MINP PRN SL 11/20/24 13:30 Morphine Sulfate 2 mg Q30M PRN IV 11/20/24 13:30 Docusate Sodium 100 mg DAILY PO 11/21/24 10:00 Levothyroxine Sodium 100 mcg DAILY PO 11/21/24 10:00 11/23/24 09:26 100 MCG Loratadine 10 mg DAILY PO 11/21/24 10:00 11/23/24 09:25 10 MG Montelukast Sodium 10 mg DAILY PO 11/21/24 10:00 11/23/24 09:25 10 MG Patient Own Medication 10 mg DAILY PO 11/21/24 10:00 UNV Patient Own Medication 10 mg DAILY PO 11/21/24 10:00 Patient Own Medication 5 mcg UD PO 11/20/24 13:45 Amlodipine Besylate 10 mg DAILY PO 11/21/24 10:00 11/23/24 09:23 10 MG Norepinephrine Bitartrate 250 ml @ 3.75 mls/hr Q24H IV 11/20/24 15:15 11/20/24 15:20 3.75 MLS/HR Alprazolam 1 mg HS PO 11/21/24 22:00 11/22/24 22:34 1 MG Famotidine 40 mg Q24H PO 11/21/24 22:00 11/22/24 22:33 40 MG Throat Lozenges 1 david Q2HP PRN MT 11/22/24 17:15 11/22/24 20:13 1 DAVID laboratory and microbiology Laboratory Tests 11/21/24 02:52 Test 11/21/24 02:52 Range/Units Serum Glucose 195 H 74-106 mg/dL Assessment/Plan acute hypoxemic resp failure copd/asthma atelectases neck swelling s/p cervical vertebral fusion events d/graded min 02 requirements vs stable labs and imaging reviewed management incent spirometry cont pain control IV fluids monitor labs renal function diet prophylaxis dvt proph full code dc per primary Dietary Evaluation Review Comments: 1. If EN/GI accessible, TF, Vital high Protein 45ml/hr 94g Protein, 1080kcal, 903ml free water 2, If EN not feasible and GI unaccessible, TPN per pharmacy to meet at least 75% of her protein and energy needs. 3. Advance to Regular diet after passing SUPERVISOR MACHINE WORKERS eval Expected Outcomes/Goals: Off Vent, advance to diet Plan discussed with: Other (r) JANE GAGNON MD Nov 23, 2024 12:17
--- NOTE | 2024-11-23 19:42 | DVHPN2 ---
Progress Note - Surgical Date Seen: Nov 23, 2024 Post op day Post op day: 3 Subjective Patient reports: No new complaints, Feels better, Other (STILL HAVING TROUBLE SWALLOWING) Review of Systems: NEURO:Abnormal (HEADACHES, SHOULDER PAIN ) Objective Vital signs Vital Sign Date Time Temp Pulse Resp B/P (MAP) Pulse Ox O2 Delivery O2 Flow Rate FiO2 11/23/24 16:45 97.7 98 16 128/70 (89) 97 97.7 11/23/24 07:55 Nasal Cannula* 2 28 Total Intake and Output 11/22/24 11/22/24 11/23/24 15:00 23:00 07:00 Intake Total 800 ml 800 ml 300 ml Output Total 650 ml 2100 ml 1000 ml Balance 150 ml -1300 ml -700 ml Medications Current Medications Medications Dose Ordered Sig/Garrick Route Start Time Stop Time Status Last Admin Dose Admin Dextrose/Sodium Chloride 1,000 ml @ 100 mls/hr Q10H IV 11/20/24 13:30 11/23/24 11:30 100 MLS/HR Ondansetron HCl 4 mg Q4HP PRN IV 11/20/24 13:30 11/21/24 14:22 4 MG Acetaminophen 650 mg Q6HP PRN PO 11/20/24 13:30 Acetaminophen/ Hydrocodone Bitart 1 tab Q6HP PRN PO 11/20/24 13:30 11/21/24 12:38 1 TAB Morphine Sulfate 1 mg Q4HP PRN IV 11/20/24 13:30 Cyclobenzaprine HCl 10 mg TID PO 11/20/24 14:00 11/23/24 14:48 10 MG Nitroglycerin 0.4 mg Q5MINP PRN SL 11/20/24 13:30 Morphine Sulfate 2 mg Q30M PRN IV 11/20/24 13:30 Docusate Sodium 100 mg DAILY PO 11/21/24 10:00 Levothyroxine Sodium 100 mcg DAILY PO 11/21/24 10:00 11/23/24 09:26 100 MCG Loratadine 10 mg DAILY PO 11/21/24 10:00 11/23/24 09:25 10 MG Montelukast Sodium 10 mg DAILY PO 11/21/24 10:00 11/23/24 09:25 10 MG Patient Own Medication 10 mg DAILY PO 11/21/24 10:00 UNV Patient Own Medication 10 mg DAILY PO 11/21/24 10:00 Patient Own Medication 5 mcg UD PO 11/20/24 13:45 Amlodipine Besylate 10 mg DAILY PO 11/21/24 10:00 11/23/24 09:23 10 MG Norepinephrine Bitartrate 250 ml @ 3.75 mls/hr Q24H IV 11/20/24 15:15 11/20/24 15:20 3.75 MLS/HR Alprazolam 1 mg HS PO 11/21/24 22:00 11/22/24 22:34 1 MG Famotidine 40 mg Q24H PO 11/21/24 22:00 11/22/24 22:33 40 MG Throat Lozenges 1 david Q2HP PRN MT 11/22/24 17:15 11/22/24 20:13 1 DAVID Laboratory Laboratory Tests 11/21/24 02:52 Test 11/21/24 02:52 Range/Units Serum Glucose 195 H 74-106 mg/dL Microbiology Date/Time Source Procedure Growth Status 11/20/24 16:00 Nose MRSA Screen - Final Complete Examination: GENERAL:Normal, HEENT:Normal (IMPROVED HEADACHES), NECK:Abnormal (DIFFICULTY SWALLOWING), LUNGS:Normal, CVS:Normal, ABDOMEN:Normal, MSK:Normal (UP AND WALKING WITH pt), SKIN:Normal (TA INTACT EDGES WELL APROXIMATED.), NEURO:Normal (IMPROVED IN PREOPERATIVE SYMPTOMS), :Normal Problem List/Assessment/Plan Problems: (1) Swallowing difficulty (2) Acute post-operative pain (3) Muscle spasms of neck Assessment and Plan Patient is doing well speaking full sentences, handles secretions. Difficulty swallow , sore throat Patient is still having residual sore throat and some difficulty swallowing water. Waiting for an official swallow evaluation. Patient has been up to ambulate on the unit and doing well. Swelling improved to right lateral neck since surgery date Still pending official swallow evaluation by speech therapy NGT in place Physical therapy to assess and evaluate for safety and recommendations for discharge Advanced diet as tolerated ice chips, Decadron, and Cepacol Call with questions Shiva Tobias [facility] Orthopaedic Spine Surgery nurse practitioner For Dr Francisco Banerjee Office Patient was examined, chart reviewed, labs evaluated, and diagnostic studies and findings analyzed. Case was discussed with Dr. Zaheer Banerjee who formulated the plan of care. This medical document was created using an electronic medical record system with [employer] dictation system. Although this document has been carefully reviewed, there might still be some phonetic and typographical errors. These areas are purely typographical due to imperfections of the software programs, and do not reflect any compromise in the patient's medical care. My Orders My Orders Orders - CARLOS TOBIAS NP Procedure Category Date Status Time Communication Order ORDERS 11/23/24 Verified 19:28 Communication Order ORDERS 11/23/24 Verified 19:28 Dexamethasone PHA 11/23/24 Verified Injection (Decadron 19:30 Plan discussed with Plan discussed with: Patient, Other (bedside RN) Visit Coding Surgery Date of Service if different f: Nov 23, 2024 Billing Provider: CARLOS TOBIAS NP Surgery Visit Codes: NOT BILLABLE CARLOS TOBIAS NP Nov 23, 2024 19:42
[2024-11-23] MEDS: CYCLOBENZAPRINE HCL 10 MG TAB PO SCH (20:54)
[2024-11-24] VITALS (7 sets, daily range): BP systolic 116–132; BP diastolic 68–75; PULSE 95–118; RESP 12–17; TEMP 97.5–98.5; O2SAT 93–95
--- NOTE | 2024-11-24 15:38 | DVHPN2 ---
Progress Note - Dictate Date Seen: Nov 24, 2024 Medical Necessity Reason Pt with a Central, PICC or Fol: No vital signs Vital Sign Date Time Temp Pulse Resp B/P (MAP) Pulse Ox O2 Delivery O2 Flow Rate FiO2 11/24/24 13:00 97.6 117 16 121/68 (85) 93 97.6 11/24/24 08:05 Nasal Cannula* 2 28 Total Intake and Output 11/23/24 11/23/24 11/24/24 15:00 23:00 07:00 Intake Total 700 ml 600 ml 300 ml Output Total 800 ml Balance 700 ml -200 ml 300 ml medications Current Medications Medications Dose Ordered Sig/Garrick Route Start Time Stop Time Status Last Admin Dose Admin Dextrose/Sodium Chloride 1,000 ml @ 100 mls/hr Q10H IV 11/20/24 13:30 11/23/24 11:30 100 MLS/HR Ondansetron HCl 4 mg Q4HP PRN IV 11/20/24 13:30 11/21/24 14:22 4 MG Acetaminophen 650 mg Q6HP PRN PO 11/20/24 13:30 Acetaminophen/ Hydrocodone Bitart 1 tab Q6HP PRN PO 11/20/24 13:30 11/21/24 12:38 1 TAB Morphine Sulfate 1 mg Q4HP PRN IV 11/20/24 13:30 Nitroglycerin 0.4 mg Q5MINP PRN SL 11/20/24 13:30 Morphine Sulfate 2 mg Q30M PRN IV 11/20/24 13:30 Docusate Sodium 100 mg DAILY PO 11/21/24 10:00 11/24/24 10:05 100 MG Levothyroxine Sodium 100 mcg DAILY PO 11/21/24 10:00 11/24/24 10:05 100 MCG Loratadine 10 mg DAILY PO 11/21/24 10:00 11/24/24 10:05 10 MG Montelukast Sodium 10 mg DAILY PO 11/21/24 10:00 11/24/24 10:05 10 MG Patient Own Medication 10 mg DAILY PO 11/21/24 10:00 UNV Patient Own Medication 10 mg DAILY PO 11/21/24 10:00 Patient Own Medication 5 mcg UD PO 11/20/24 13:45 Amlodipine Besylate 10 mg DAILY PO 11/21/24 10:00 11/24/24 10:05 10 MG Alprazolam 1 mg HS PO 11/21/24 22:00 11/23/24 21:59 1 MG Famotidine 40 mg Q24H PO 11/21/24 22:00 11/23/24 21:53 40 MG Throat Lozenges 1 david Q2HP PRN MT 11/22/24 17:15 11/24/24 13:58 1 DAVID Cyclobenzaprine HCl 10 mg TID@0500,1300,2100 PO 11/23/24 21:00 11/24/24 13:56 10 MG laboratory and microbiology Laboratory Tests 11/21/24 02:52 Test 11/21/24 02:52 Range/Units Serum Glucose 195 H 74-106 mg/dL Assessment/Plan acute hypoxemic resp failure copd/asthma atelectases neck swelling s/p cervical vertebral fusion patient seen and examined events d/graded min 02 requirements no new events labs and imaging reviewed management incent spirometry cont pain control IV fluids monitor labs renal function diet prophylaxis dvt proph full code okay to discharge from pulmonary standpoint Dietary Evaluation Review Comments: 1. If EN/GI accessible, TF, Vital high Protein 45ml/hr 94g Protein, 1080kcal, 903ml free water 2, If EN not feasible and GI unaccessible, TPN per pharmacy to meet at least 75% of her protein and energy needs. 3. Advance to Regular diet after passing MEDICAL BILLING CLERK eval Expected Outcomes/Goals: Off Vent, advance to diet Plan discussed with: Patient JANE GAGNON MD Nov 24, 2024 15:38
[2024-11-25] VITALS (8 sets, daily range): BP systolic 116–144; BP diastolic 68–77; PULSE 82–100; RESP 12–18; TEMP 97–98.4; O2SAT 94–98
--- NOTE | 2024-11-25 09:30 | DVHPN2 ---
Progress Note - Surgical Date Seen: Nov 24, 2024 Post op day Post op day: 3 Subjective Patient reports: Feels better, Other (left side facial numbness noted. boarder is mid face extending lateral to posterior edge of the ear left, inferior to zygomatic arch down one finger breath below surgical site.) Review of Systems: NEURO:Abnormal (occipiat headaches, bilateral shouldrer pain) Objective Vital signs Vital Sign Date Time Temp Pulse Resp B/P (MAP) Pulse Ox O2 Delivery O2 Flow Rate FiO2 11/25/24 08:38 98.4 96 12 144/77 (99) 96 98.4 11/25/24 07:50 Nasal Cannula* 2 28 Total Intake and Output 11/24/24 11/24/24 11/25/24 15:00 23:00 07:00 Intake Total 120 ml 380 ml Balance 120 ml 380 ml Medications Current Medications Medications Dose Ordered Sig/Garrick Route Start Time Stop Time Status Last Admin Dose Admin Dextrose/Sodium Chloride 1,000 ml @ 100 mls/hr Q10H IV 11/20/24 13:30 11/25/24 03:30 100 MLS/HR Ondansetron HCl 4 mg Q4HP PRN IV 11/20/24 13:30 11/21/24 14:22 4 MG Acetaminophen 650 mg Q6HP PRN PO 11/20/24 13:30 Acetaminophen/ Hydrocodone Bitart 1 tab Q6HP PRN PO 11/20/24 13:30 11/21/24 12:38 1 TAB Morphine Sulfate 1 mg Q4HP PRN IV 11/20/24 13:30 Nitroglycerin 0.4 mg Q5MINP PRN SL 11/20/24 13:30 Morphine Sulfate 2 mg Q30M PRN IV 11/20/24 13:30 Docusate Sodium 100 mg DAILY PO 11/21/24 10:00 11/24/24 10:05 100 MG Levothyroxine Sodium 100 mcg DAILY PO 11/21/24 10:00 11/24/24 10:05 100 MCG Loratadine 10 mg DAILY PO 11/21/24 10:00 11/24/24 10:05 10 MG Montelukast Sodium 10 mg DAILY PO 11/21/24 10:00 11/24/24 10:05 10 MG Patient Own Medication 10 mg DAILY PO 11/21/24 10:00 UNV Patient Own Medication 10 mg DAILY PO 11/21/24 10:00 Patient Own Medication 5 mcg UD PO 11/20/24 13:45 Amlodipine Besylate 10 mg DAILY PO 11/21/24 10:00 11/24/24 10:05 10 MG Alprazolam 1 mg HS PO 11/21/24 22:00 11/24/24 22:05 1 MG Famotidine 40 mg Q24H PO 11/21/24 22:00 11/24/24 22:05 40 MG Throat Lozenges 1 david Q2HP PRN MT 11/22/24 17:15 11/24/24 13:58 1 DAVID Cyclobenzaprine HCl 10 mg TID@0500,1300,2100 PO 11/23/24 21:00 11/25/24 05:18 10 MG Laboratory Laboratory Tests 11/21/24 02:52 Test 11/21/24 02:52 Range/Units Serum Glucose 195 H 74-106 mg/dL Microbiology Date/Time Source Procedure Growth Status 11/20/24 16:00 Nose MRSA Screen - Final Complete Examination: GENERAL:Normal, HEENT:Abnormal (new left facial numbness), NECK:Normal (expected post operative swelling- improving), LUNGS:Normal, CVS:Normal, ABDOMEN:Normal, MSK:Normal (ambulating), SKIN:Normal (surgical site well approximated with colt), NEURO:Abnormal (improve preoperative sympy, new left facial numbness headaches gone, shoulders improved), :Normal Problem List/Assessment/Plan Problems: (1) Swallowing difficulty (2) Muscle spasms of neck (3) Acute post-operative pain Assessment and Plan Patient is doing well speaking full sentences, handles secretions.NGT removed, able to take small bites og jello. will attempt puree diet- swallow eval pending x 32 days, sore throat improving Patient has been up to ambulate on the unit and doing well. Swelling improved to right lateral neck since surgery date new left sided facial numbness reported- possible irritation of 5th branch of cranial nerve 7 from post operative swelling Patient progressing to discharge Advanced diet as tolerated ice chips, Cepacol, ice packs Sign out to Dr Banerjee for 11/25- coverage current conditions given in handoff. care released. Call with questions Shiva Tobias [facility] Orthopaedic Spine Surgery nurse practitioner For Dr Francisco Banerjee Office Patient was examined, chart reviewed, labs evaluated, and diagnostic studies and findings analyzed. Case was discussed with Dr. Zaheer Banerjee who formulated the plan of care. This medical document was created using an electronic medical record system with [employer] system. Although this document has been carefully reviewed, there might still be some phonetic and typographical errors. These areas are purely typographical due to imperfections of the software programs, and do not reflect any compromise in the patient's medical care. My Orders My Orders Orders - CARLOS TOBIAS NP Procedure Category Date Status Time Discontinue Ng ORDERS 11/24/24 Transmitted 14:41 Pureed DIET 11/24/24 Transmitted Dinner Plan discussed with Plan discussed with: Patient, Other (bedside RN) Visit Coding Surgery Date of Service if different f: Nov 24, 2024 Billing Provider: CARLOS TOBIAS NP Surgery Visit Codes: NOT BILLABLE CARLOS TOBIAS NP Nov 25, 2024 09:30
--- NOTE | 2024-11-25 14:32 | DVHPN2 ---
Progress Note - Dictate Date Seen: Nov 25, 2024 Medical Necessity Reason Pt with a Central, PICC or Fol: No vital signs Vital Sign Date Time Temp Pulse Resp B/P (MAP) Pulse Ox O2 Delivery O2 Flow Rate FiO2 11/25/24 12:44 98.0 92 18 116/69 (85) 98 98.0 11/25/24 07:50 Nasal Cannula* 2 28 Total Intake and Output 11/24/24 11/24/24 11/25/24 15:00 23:00 07:00 Intake Total 120 ml 380 ml Balance 120 ml 380 ml medications Current Medications Medications Dose Ordered Sig/Garrick Route Start Time Stop Time Status Last Admin Dose Admin Dextrose/Sodium Chloride 1,000 ml @ 100 mls/hr Q10H IV 11/20/24 13:30 11/25/24 13:10 100 MLS/HR Ondansetron HCl 4 mg Q4HP PRN IV 11/20/24 13:30 11/21/24 14:22 4 MG Acetaminophen 650 mg Q6HP PRN PO 11/20/24 13:30 Acetaminophen/ Hydrocodone Bitart 1 tab Q6HP PRN PO 11/20/24 13:30 11/21/24 12:38 1 TAB Morphine Sulfate 1 mg Q4HP PRN IV 11/20/24 13:30 Nitroglycerin 0.4 mg Q5MINP PRN SL 11/20/24 13:30 Morphine Sulfate 2 mg Q30M PRN IV 11/20/24 13:30 Docusate Sodium 100 mg DAILY PO 11/21/24 10:00 11/25/24 09:51 100 MG Loratadine 10 mg DAILY PO 11/21/24 10:00 11/25/24 09:52 10 MG Montelukast Sodium 10 mg DAILY PO 11/21/24 10:00 11/25/24 09:52 10 MG Patient Own Medication 10 mg DAILY PO 11/21/24 10:00 UNV Patient Own Medication 10 mg DAILY PO 11/21/24 10:00 Amlodipine Besylate 10 mg DAILY PO 11/21/24 10:00 11/25/24 09:52 10 MG Alprazolam 1 mg HS PO 11/21/24 22:00 11/24/24 22:05 1 MG Famotidine 40 mg Q24H PO 11/21/24 22:00 11/24/24 22:05 40 MG Throat Lozenges 1 david Q2HP PRN MT 11/22/24 17:15 11/24/24 13:58 1 DAVID Cyclobenzaprine HCl 10 mg TID@0500,1300,2100 PO 11/23/24 21:00 11/25/24 13:16 10 MG Levothyroxine Sodium 100 mcg DAILY@0600 PO 11/26/24 06:00 Patient Own Medication 5 mcg DAILY@0600 PO 11/26/24 06:00 laboratory and microbiology Laboratory Tests 11/21/24 02:52 Test 11/21/24 02:52 Range/Units Serum Glucose 195 H 74-106 mg/dL Assessment/Plan acute hypoxemic resp failure copd/asthma atelectases neck swelling s/p cervical vertebral fusion patient seen and examined events d/graded min 02 requirements reports improvement labs and imaging reviewed management incent spirometry cont pain control IV fluids monitor labs renal function diet prophylaxis dvt proph full code okay to discharge from pulmonary standpoint Dietary Evaluation Review Comments: 1. If EN/GI accessible, TF, Vital high Protein 45ml/hr 94g Protein, 1080kcal, 903ml free water 2, If EN not feasible and GI unaccessible, TPN per pharmacy to meet at least 75% of her protein and energy needs. 3. Advance to Regular diet after passing PRODUCT SAFETY TECHNICIAN eval Expected Outcomes/Goals: Off Vent, advance to diet Plan discussed with: Patient JANE GAGNON MD Nov 25, 2024 14:32
[2024-11-26] VITALS (7 sets, daily range): BP systolic 103–145; BP diastolic 61–83; PULSE 98–127; RESP 16–20; TEMP 97.2–98.6; O2SAT 96–100
[2024-11-26] MEDS: LEVOTHYROXINE SODIUM 100 MCG TAB PO SCH (05:13)
[2024-11-26] MEDS: LIOTHYRONINE SODIUM 5 MCG PO SCH (05:13)
--- NOTE | 2024-11-26 13:31 | DVHPN2 ---
Progress Note - Dictate Date Seen: Nov 26, 2024 Medical Necessity Reason Pt with a Central, PICC or Fol: No vital signs Vital Sign Date Time Temp Pulse Resp B/P (MAP) Pulse Ox O2 Delivery O2 Flow Rate FiO2 11/26/24 12:22 98.5 122 20 133/71 (91) 97 98.5 11/26/24 08:00 Room Air* 0 21 Total Intake and Output 11/25/24 11/25/24 11/26/24 15:00 23:00 07:00 Intake Total 310 ml 600 ml Output Total 900 ml 1150 ml Balance -590 ml -550 ml medications Current Medications Medications Dose Ordered Sig/Garrick Route Start Time Stop Time Status Last Admin Dose Admin Dextrose/Sodium Chloride 1,000 ml @ 100 mls/hr Q10H IV 11/20/24 13:30 11/26/24 09:28 100 MLS/HR Ondansetron HCl 4 mg Q4HP PRN IV 11/20/24 13:30 11/21/24 14:22 4 MG Acetaminophen 650 mg Q6HP PRN PO 11/20/24 13:30 Acetaminophen/ Hydrocodone Bitart 1 tab Q6HP PRN PO 11/20/24 13:30 11/21/24 12:38 1 TAB Morphine Sulfate 1 mg Q4HP PRN IV 11/20/24 13:30 Nitroglycerin 0.4 mg Q5MINP PRN SL 11/20/24 13:30 Morphine Sulfate 2 mg Q30M PRN IV 11/20/24 13:30 Docusate Sodium 100 mg DAILY PO 11/21/24 10:00 11/26/24 09:27 100 MG Loratadine 10 mg DAILY PO 11/21/24 10:00 11/26/24 09:28 10 MG Montelukast Sodium 10 mg DAILY PO 11/21/24 10:00 11/26/24 09:28 10 MG Patient Own Medication 10 mg DAILY PO 11/21/24 10:00 UNV Patient Own Medication 10 mg DAILY PO 11/21/24 10:00 Amlodipine Besylate 10 mg DAILY PO 11/21/24 10:00 11/26/24 09:28 10 MG Alprazolam 1 mg HS PO 11/21/24 22:00 11/25/24 21:23 1 MG Famotidine 40 mg Q24H PO 11/21/24 22:00 11/25/24 21:23 40 MG Throat Lozenges 1 david Q2HP PRN MT 11/22/24 17:15 11/26/24 09:29 1 DAVID Cyclobenzaprine HCl 10 mg TID@0500,1300,2100 PO 11/23/24 21:00 11/26/24 12:28 10 MG Levothyroxine Sodium 100 mcg DAILY@0600 PO 11/26/24 06:00 11/26/24 05:13 100 MCG Patient Own Medication 5 mcg DAILY@0600 PO 11/26/24 06:00 11/26/24 05:13 5 MCG laboratory and microbiology Laboratory Tests 11/21/24 02:52 Test 11/21/24 02:52 Range/Units Serum Glucose 195 H 74-106 mg/dL Assessment/Plan acute hypoxemic resp failure copd/asthma atelectases neck swelling s/p cervical vertebral fusion patient seen and examined events min 02 requirements improving labs and imaging reviewed management incent spirometry cont pain control IV fluids monitor labs renal function diet prophylaxis dvt proph full code okay to discharge from pulmonary standpoint Dietary Evaluation Review Comments: 1. If EN/GI accessible, TF, Vital high Protein 45ml/hr 94g Protein, 1080kcal, 903ml free water 2, If EN not feasible and GI unaccessible, TPN per pharmacy to meet at least 75% of her protein and energy needs. 3. Advance to Regular diet after passing DISPATCHER RELAY eval Expected Outcomes/Goals: Off Vent, advance to diet Plan discussed with: Patient JANE GAGNON MD Nov 26, 2024 13:31
[2024-11-27 01:00] VITALS: BP 102/72; PULSE 112; RESP 15; TEMP 99; O2SAT 96
[2024-11-27 05:00] VITALS: BP 127/71; PULSE 104; RESP 15; TEMP 98; O2SAT 97
[2024-11-27 07:59] VITALS: BP 128/75; PULSE 106; RESP 20; TEMP 97.6; O2SAT 97
--- NOTE | 2024-11-27 11:16 | DVHPN2 ---
Progress Note - Surgical Date Seen: Nov 26, 2024 Post op day Post op day: 6 Subjective Patient reports: Feels better Review of Systems: HEENT:Abnormal, CVS:Normal, RESPIRATORY:Normal, GI:Normal, :Normal, MSK:Normal, NEURO:Normal (The swelling inthe neck is not fully stable enough to d/c home today) Objective Vital signs Vital Sign Date Time Temp Pulse Resp B/P (MAP) Pulse Ox O2 Delivery O2 Flow Rate FiO2 11/27/24 09:32 115/82 11/27/24 07:59 97.6 106 20 97 97.6 11/26/24 20:00 Room Air* 0 21 Total Intake and Output 11/26/24 11/26/24 11/27/24 15:00 23:00 07:00 Intake Total 1000 ml 1150 ml 350 ml Output Total 1500 ml 2500 ml Balance 1000 ml -350 ml -2150 ml Medications Current Medications Medications Dose Ordered Sig/Garrick Route Start Time Stop Time Status Last Admin Dose Admin Dextrose/Sodium Chloride 1,000 ml @ 100 mls/hr Q10H IV 11/20/24 13:30 11/27/24 05:13 100 MLS/HR Ondansetron HCl 4 mg Q4HP PRN IV 11/20/24 13:30 11/21/24 14:22 4 MG Acetaminophen 650 mg Q6HP PRN PO 11/20/24 13:30 Acetaminophen/ Hydrocodone Bitart 1 tab Q6HP PRN PO 11/20/24 13:30 11/21/24 12:38 1 TAB Morphine Sulfate 1 mg Q4HP PRN IV 11/20/24 13:30 Nitroglycerin 0.4 mg Q5MINP PRN SL 11/20/24 13:30 Morphine Sulfate 2 mg Q30M PRN IV 11/20/24 13:30 Docusate Sodium 100 mg DAILY PO 11/21/24 10:00 11/27/24 09:32 100 MG Loratadine 10 mg DAILY PO 11/21/24 10:00 11/27/24 09:31 10 MG Montelukast Sodium 10 mg DAILY PO 11/21/24 10:00 11/27/24 09:31 10 MG Patient Own Medication 10 mg DAILY PO 11/21/24 10:00 UNV Patient Own Medication 10 mg DAILY PO 11/21/24 10:00 Amlodipine Besylate 10 mg DAILY PO 11/21/24 10:00 11/27/24 09:32 10 MG Alprazolam 1 mg HS PO 11/21/24 22:00 11/26/24 21:07 1 MG Famotidine 40 mg Q24H PO 11/21/24 22:00 11/26/24 21:07 40 MG Throat Lozenges 1 david Q2HP PRN MT 11/22/24 17:15 11/26/24 09:29 1 DAVID Cyclobenzaprine HCl 10 mg TID@0500,1300,2100 PO 11/23/24 21:00 11/27/24 05:11 10 MG Levothyroxine Sodium 100 mcg DAILY@0600 PO 11/26/24 06:00 11/27/24 05:11 100 MCG Patient Own Medication 5 mcg DAILY@0600 PO 11/26/24 06:00 11/27/24 05:11 5 MCG Laboratory Laboratory Tests 11/21/24 02:52 Test 11/21/24 02:52 Range/Units Serum Glucose 195 H 74-106 mg/dL Microbiology Date/Time Source Procedure Growth Status 11/20/24 16:00 Nose MRSA Screen - Final Complete Examination: GENERAL:Normal, HEENT:Abnormal, NECK:Abnormal, LUNGS:Normal, CVS:Normal, ABDOMEN:Normal, MSK:Normal, SKIN:Normal, NEURO:Normal, :Normal Problem List/Assessment/Plan Assessment and Plan Post op day 6 The breathing is better She is hemodynamically stable The swelling in the neck however, needs to get a little bit more reduced before it is safe to d/c home without putting her at risk of respiratory compromise Plan discussed with Plan discussed with: Patient Visit Coding Surgery Date of Service if different f: Nov 26, 2024 Billing Provider: CLARICE TAYLOR MD Surgery Visit Codes: NOT BILLABLE CLARICE TAYLOR MD Nov 27, 2024 11:16
[2024-11-27 12:23] VITALS: BP 116/71; PULSE 116; RESP 18; TEMP 97.8; O2SAT 98
--- NOTE | 2024-11-27 12:56 | DVHPN2 ---
Progress Note - Surgical Date Seen: Nov 27, 2024 Post op day Post op day: 7 Subjective Patient reports: Feels better, Other (voice is horse, patient feels swelling to upper right side of throat. reports she had pain there while intubated) Review of Systems: NEURO:Abnormal (occipital headaches, bilateral shoulder pain ) Objective Vital signs Vital Sign Date Time Temp Pulse Resp B/P (MAP) Pulse Ox O2 Delivery O2 Flow Rate FiO2 11/27/24 12:23 97.8 116 18 116/71 (86) 98 97.8 11/27/24 08:00 Room Air* 0 21 Total Intake and Output 11/26/24 11/26/24 11/27/24 14:59 22:59 06:59 Intake Total 1000 ml 1150 ml 350 ml Output Total 1500 ml 2500 ml Balance 1000 ml -350 ml -2150 ml Medications Current Medications Medications Dose Ordered Sig/Garrick Route Start Time Stop Time Status Last Admin Dose Admin Dextrose/Sodium Chloride 1,000 ml @ 100 mls/hr Q10H IV 11/20/24 13:30 11/27/24 05:13 100 MLS/HR Ondansetron HCl 4 mg Q4HP PRN IV 11/20/24 13:30 11/21/24 14:22 4 MG Acetaminophen 650 mg Q6HP PRN PO 11/20/24 13:30 Acetaminophen/ Hydrocodone Bitart 1 tab Q6HP PRN PO 11/20/24 13:30 11/21/24 12:38 1 TAB Morphine Sulfate 1 mg Q4HP PRN IV 11/20/24 13:30 Nitroglycerin 0.4 mg Q5MINP PRN SL 11/20/24 13:30 Morphine Sulfate 2 mg Q30M PRN IV 11/20/24 13:30 Docusate Sodium 100 mg DAILY PO 11/21/24 10:00 11/27/24 09:32 100 MG Loratadine 10 mg DAILY PO 11/21/24 10:00 11/27/24 09:31 10 MG Montelukast Sodium 10 mg DAILY PO 11/21/24 10:00 11/27/24 09:31 10 MG Patient Own Medication 10 mg DAILY PO 11/21/24 10:00 UNV Patient Own Medication 10 mg DAILY PO 11/21/24 10:00 Amlodipine Besylate 10 mg DAILY PO 11/21/24 10:00 11/27/24 09:32 10 MG Alprazolam 1 mg HS PO 11/21/24 22:00 11/26/24 21:07 1 MG Famotidine 40 mg Q24H PO 11/21/24 22:00 11/26/24 21:07 40 MG Throat Lozenges 1 david Q2HP PRN MT 11/22/24 17:15 11/26/24 09:29 1 DAVID Cyclobenzaprine HCl 10 mg TID@0500,1300,2100 PO 11/23/24 21:00 11/27/24 05:11 10 MG Levothyroxine Sodium 100 mcg DAILY@0600 PO 11/26/24 06:00 11/27/24 05:11 100 MCG Patient Own Medication 5 mcg DAILY@0600 PO 11/26/24 06:00 11/27/24 05:11 5 MCG Laboratory Laboratory Tests 11/21/24 02:52 Test 11/21/24 02:52 Range/Units Serum Glucose 195 H 74-106 mg/dL Microbiology Date/Time Source Procedure Growth Status 11/20/24 16:00 Nose MRSA Screen - Final Complete Examination: GENERAL:Normal, HEENT:Abnormal (voice strength has declined, however swallowing is improved), NECK:Normal (surgical site well approximated with colt), LUNGS:Normal, CVS:Normal, ABDOMEN:Normal, MSK:Normal (ambulating well), SKIN:Normal (scant drainage to right edge of site reported by patient), NEURO:Normal (improved, headaches respolved, mike shoulders improved), :Normal Problem List/Assessment/Plan Problems: (1) Voice hoarseness (2) Acute post-operative pain (3) Muscle spasms of neck (4) Swallowing difficulty Assessment and Plan Patient is doing well, preoperative symptoms have resolved. She says her headaches are much better and the pain to her bilateral shoulders has improved. The patient recalls feeling the endotracheal tube pushing on the right side of her larynx when she was intubated in the ICU. The patient states the pain is in the same spot now. She is unable to speak at a normal volume and it has gotten progressively worse over the past week since extubation. She is attempting to speak full sentences, she was reminded to speak as little as possible to allow for vocal cord rest. She is able to take small bites of jello, applesauce, puree food. Patient has been up to ambulate on the unit and doing well. Swelling improved to right lateral neck since surgery date, with light amount of noted swelling across the staple line Left sided facial numbness has improved, now more localized to the ear area- possible irritation of 5th branch of cranial nerve 7 from post operative swelling CT scan soft tissue neck ordered no contrast to be evaluated prior to discharge Patient progressing to discharge - if the CT reading is acceptable she will be discharged home today Advanced diet as tolerated ice chips, Cepacol, ice packs Call with questions Shiva Tobias [facility] Orthopaedic Spine Surgery nurse practitioner For Dr Francisco Banerjee Office Patient was examined, chart reviewed, labs evaluated, and diagnostic studies and findings analyzed. Case was discussed with Dr. Zaheer Banerjee who formulated the plan of care. This medical document was created using an electronic medical record system with [employer] dictation system. Although this document has been carefully reviewed, there might still be some phonetic and typographical errors. These areas are purely typographical due to imperfections of the software programs, and do not reflect any compromise in the patient's medical care. Plan discussed with Plan discussed with: Patient, Other Visit Coding Surgery Date of Service if different f: Nov 20, 2024 Billing Provider: CARLOS TOBIAS NP Surgery Visit Codes: NOT BILLABLE CARLOS TOBIAS NP Nov 27, 2024 12:56
--- NOTE | 2024-11-27 13:06 | DVHDS2 ---
ASSESSMENT ASSESSMENT Hospital Course The patient arrived for a elective spine surgery with Dr. BANERJEE. Surgery went as planned with a plan stay in the ICU postoperatively due to some right side neck swelling. Dr. Krause did come in to the operating room during closure to assess the neck, no active bleed was found. For airway protection the patient remained intubated overnight to reassess bleeding. Patient was extubated on postop day one in the ICU and immediately had firm difficulty talking and swallowing. Patient did state that she felt the ET tube pushing in a right lateral position against the inside of her throat which she described as very painful. NG tube remained in place for several days due to difficulty swallowing. Patient did report an improvement in her preoperative symptoms as in her occipital headaches had resolved and she was slowly improving in the discomfort to her bilateral shoulders. Swelling did start to decrease to the neck on postoperative days two and three however she continued to have difficulty swallowing and voice hoarseness. She was eventually downgraded out to the floor where she was evaluated frequently for swallowing. She was able to get up and ambulate with physical therapy and progressed well. Patient was kept on the [facility] for postoperative care, airway protection, and pain management over the course of 7 postoperative days. In a slow progression pattern the patient was able to tolerate a diet, ambulate independently, the pain has been managed with oral analgesics, however her voice is slow to improve. Patient also continues to complain of pain to the right side of her larynx on the inside. The surgical site is well-approximated with sutures, some residual drainage continues from the right in of the surgical site, however it is manageable with daily wound care and dressing changes. Trevor are all in place in the wound edges are well approximated there is no redness no pus drainage or increase in discomfort with palpation. There is slight swelling noted along the actual surgical site line. However the area surrounding the surgical site has greatly improved in swelling. CT scan noncontrast of the soft tissue and neck was ordered prior to discharge Improvement to preoperative symptoms of extremities, strength and motion. There is new post operative pain that is localized to the surgical site. The patient will follow-up with Dr. Banerjee for wound check and staple removal. Assessment same as pre op Problems: (1) Acute post-operative pain Assessments: Patient has a medication that she has picked up after her preoperative visit (2) Muscle spasms of neck Assessments: Patient has medication as she has already picked up from her preoperative visit (3) Swallowing difficulty Assessments: Continue with pureed diet, small bites of food small quantities of liquids. Patient is able to redemonstrate adequate swallowing of food and liquids at this time without any coughing or choking (4) Voice hoarseness Assessments: We stressed, recommend a humidifier in her room to help prevent dryness of the mucous membranes CARLOS RAE NP Nov 27, 2024 13:06
--- NOTE | 2024-11-27 13:15 | DVHDS2 ---
Discharge Summary Date of Admission Nov 20, 2024 at 13:29 Date of Discharge: Nov 27, 2024 Admitting Diagnosis Cervical Degenerative Disk Disease and Spinal Stenosis at C3/4 and C4/5 Causing incapacitating neck pain, myelo-radiculopathy and progressive neurologic deficit, patient arrived for elective spine surgery cervical 3-5 anterior cervical diskectomy and fusion Wounds: Left anterior neck surgical site, well approximated with trveor some residual drainage to the very far right aspect of the wound manageable with daily dressing changes. However wound is currently open to air Labs/Diagnostic Data: Laboratory Results Test 11/21/24 05:55 11/21/24 02:52 11/20/24 15:23 Blood Gas Specimen Type Arterial Blood Gas Sample Site Arterial line Blood Gas Patient Temperature 37.0 Arterial Blood Date Drawn [id number] Arterial Blood pH 7.324 (7.350-7.450) Arterial Blood Partial Pressure CO2 35.5 mmHg (32.0-45.0) Arterial Blood Partial Pressure O2 118.8 mmHg (83.0-108.0) Arterial Blood HCO3 18.0 mmol/L (21.0-28.0) Arterial Blood Oxygen Saturation 97.7 % (94.0-98.0) Arterial Blood Base Excess -7.2 mmol/L (-2.0-3.0) Arterial Blood Oxyhemoglobin 96.2 % (94.0-98.0) Arterial Blood Carboxyhemoglobin 0.9 % (0.5-1.5) Arterial Blood Methemoglobin 0.6 % (0.0-1.5) Jethro Test N/a Blood Gas Total Hemoglobin 12.70 g/dL (12.0-16.0) Blood Gas Set Respiration Rate 14.0 Blood Gas Modality Vent - ac FiO2 % 30.0 Blood Gas Tidal Volume 400.0 Blood Gas PEEP or CPAP 5.0 White Blood Count 14.2 10^3/uL (4.4-10.8) Red Blood Count 3.95 10^6/uL (4.0-5.20) Hemoglobin 12.4 g/dL (12.2-16.2) Hematocrit 36.4 % (36.0-46.0) Mean Corpuscular Volume 92.1 fL (80.0-100.0) Mean Corpuscular Hemoglobin 31.4 pg (28.0-32.0) Mean Corpuscular Hemoglobin Concent 34.1 g/dL (32.0-36.0) Red Cell Distribution Width 14.0 % (11.8-14.3) Platelet Count 250 10^3/uL (140-450) Mean Platelet Volume 8.5 fL (6.9-10.8) Neutrophils (%) (Auto) 89.0 % (37.0-80.0) Lymphocytes (%) (Auto) 5.6 % (10.0-50.0) Monocytes (%) (Auto) 5.3 % (0.0-12.0) Eosinophils (%) (Auto) 0.0 % (0.0-7.0) Basophils (%) (Auto) 0.1 % (0.0-2.0) Neutrophils # (Auto) 12.6 10 ^3/uL (1.6-8.6) Lymphocytes # (Auto) 0.8 10 ^3/uL (0.4-5.4) Monocytes # (Auto) 0.7 10 ^3/uL (0-1.3) Eosinophils # (Auto) 0 10 ^3/uL (0-0.8) Basophils # (Auto) 0 10 ^3/uL (0-0.2) Nucleated Red Blood Cells 0.0 % Sodium Level 145 mmol/L (136-145) Potassium Level 4.5 mmol/L (3.5-5.1) Chloride Level 116 mmol/L (98-107) Carbon Dioxide Level 22 mmol/L (20-31) Anion Gap 7 (5-15) Blood Urea Nitrogen 11 mg/dL (9-23) Creatinine 0.83 mg/dL (0.550-1.02) Glomerular Filtration Rate Calc 75 mL/min (>90) BUN/Creatinine Ratio 13.3 (10.0-20.0) Serum Glucose 195 mg/dL (74-106) Calcium Level 8.0 mg/dL (8.7-10.4) Magnesium Level 1.8 mg/dL (1.6-2.6) Blood Gas Critical Value Read Back Yes Blood Gas Notified Whom Dr. karina de la vega Blood Gas Notified Time [id number] Blood Gas Notified By [facility] Other Laboratory Tests 11/21/24 02:52 Brief Hx & Hospital Course: The patient arrived for a elective spine surgery with Dr. BANERJEE. Surgery went as planned with a plan stay in the ICU postoperatively due to some right side neck swelling. Dr. Krause did come in to the operating room during closure to assess the neck, no active bleed was found. For airway protection the patient remained intubated overnight to reassess bleeding. Patient was extubated on postop day one in the ICU and immediately had firm difficulty talking and swallowing. Patient did state that she felt the ET tube pushing in a right lateral position against the inside of her throat which she described as very painful. NG tube remained in place for several days due to difficulty swallowing. Patient did report an improvement in her preoperative symptoms as in her occipital headaches had resolved and she was slowly improving in the discomfort to her bilateral shoulders. Swelling did start to decrease to the neck on postoperative days two and three however she continued to have difficulty swallowing and voice hoarseness. She was eventually downgraded out to the floor where she was evaluated frequently for swallowing. She was able to get up and ambulate with physical therapy and progressed well. Patient was kept on the [facility] floor for postoperative care, airway protection, and pain management over the course of 7 postoperative days. In a slow progression pattern the patient was able to tolerate a diet, ambulate independently, the pain has been managed with oral analgesics, however her voice is slow to improve. Patient also continues to complain of pain to the right side of her larynx on the inside. The surgical site is well-approximated with sutures, some residual drainage continues from the right in of the surgical site, however it is manageable with daily wound care and dressing changes. [place] are all in place in the wound edges are well approximated there is no redness no pus drainage or increase in discomfort with palpation. There is slight swelling noted along the actual surgical site line. However the area surrounding the surgical site has greatly improved in swelling. CT scan noncontrast of the soft tissue and neck was ordered prior to discharge Improvement to preoperative symptoms of extremities, strength and motion. There is new post operative pain that is localized to the surgical site. The patient will follow-up with Dr. Banerjee for wound check and staple removal. Operations or Procedures Diagnosis: Cervical Degenerative Disk Disease and Spinal Stenosis at C3/4 and C4/5 Causing incapacitating neck pain, myelo-radiculopathy and progressive neurologic deficit Procedure: Cervical 3 to 4 anterior cervical discectomy with Cervical 3-4 foraminotomies and facetectomies to decompression the spinal canal and Cervical 4 nerve roots Cervical 4 to 5 anterior cervical discectomy with Cervical 4-5 foraminotomies and facetectomies to decompression the spinal canal and Cervical 5 nerve roots Cervical 3-5 anterior cervical Fusion Cervical 3-5 anterior cervical instrumentation with Xtant Irix-C standalone fixation devices Cervical 3-4 placement of allograft prosthetic device Cervical 4-5 placement of allograft prosthetic device Condition at Discharge: Good Final Diagnosis/Problems List Postoperative pain status post cervical spine surgery, muscle spasms to the neck, voice hoarseness, difficulty swallowing. Status post cervical 3-5 anterior cervical diskectomy and fusion Discharge Disposition: Home with Health Services Discharge Instruct/Medications Diet: See Comment Diet comment: Continue to eat pureed foods, small bites, slowly take liquids to prevent coughing or choking as you have been doing in the hospital. Activity: No Restrictions, As Tolerated Activity comment: Continue to move your neck from [id number] in a slow fashion to ensure that your range of motion is maintained. You you should continue walking and moving as much as possible while you are healing. Follow Up/Referral: Keep your follow up appointment with Dr. Zaheer Banerjee as scheduled Call for a appointment, or to change or confirm your appoinment [address] [place] [address], [place] [id number] Medications: All medications have been picked up Continued Medications: Alendronate Sodium (Alendronate Sodium) 70 Mg Tab 70 MG PO Q7D, TAB Alprazolam (Alprazolam) 1 Mg Tab 1 MG PO QPM, TAB Amlodipine Besylate (Amlodipine Besylate) 10 Mg Tab 10 MG PO DAILY, TAB Atorvastatin Calcium (Atorvastatin Calcium) 40 Mg Tab 40 MG PO DAILY, TAB Bisoprolol Fumarate (Bisoprolol Fumarate) 5 Mg Tab 10 MG PO DAILY, TAB Cholecalciferol (D3) 250 Mcg Cap 125 MCG PO DAILY, CAP Cyclobenzaprine Hcl (Cyclobenzaprine Hcl) 5 Mg Tab 5 MG PO DAILY, TAB Docusate Sodium (Colace) 100 Mg Cap 100 MG PO DAILY, CAP Famotidine (Gnp Acid Chairman & Ceo Maximum) 20 Mg Tab 20 MG PO, TAB Famotidine (Pepcid Tablet) 20 Mg Tb 40 MG GT, TAB Fluticasone-Salmeterol (Wixela Inhub 100-50 Mcg/Dose) 1 Aer Aer Unknown Dose IN, AER Levothyroxine Sodium (Synthroid Tablet) 100 Mcg Tb 100 MCG PO DAILY, TAB Liothyronine Sodium (Liothyronine Sodium) 5 Mcg Tab 5 MCG PO UD, TAB Take 2 tabs M,W,F and 1 tab Tu, Thurs,Sat Loratadine (Claritin) 10 Mg Tab 10 MG PO DAILY, TAB Montelukast Sodium (Montelukast Sodium) 10 Mg Tab 10 MG OR DAILY, TAB Pancreatic Enzymes (Creon) 3,000 Unit Cap 6000 UNIT PO TID, CAP Discontinued Medications: Aspirin (Aspirin Low Dose) 81 Mg Chw 81 MG PO DAILY, TAB.CHEW Scheduled Alendronate Sodium (Alendronate Sodium), 70 MG PO Q7D, (Reported) Alprazolam (Alprazolam), 1 MG PO QPM, (Reported) Amlodipine Besylate (Amlodipine Besylate), 10 MG PO DAILY, (Reported) Aspirin (Aspirin Low Dose), 81 MG PO DAILY, (Reported) Atorvastatin Calcium (Atorvastatin Calcium), 40 MG PO DAILY, (Reported) Bisoprolol Fumarate (Bisoprolol Fumarate), 10 MG PO DAILY, (Reported) Cholecalciferol (D3), 125 MCG PO DAILY, (Reported) Cyclobenzaprine Hcl (Cyclobenzaprine Hcl), 5 MG PO DAILY, (Reported) Docusate Sodium (Colace), 100 MG PO DAILY, (Reported) Levothyroxine Sodium (Synthroid Tablet), 100 MCG PO DAILY, (Reported) Liothyronine Sodium (Liothyronine Sodium), 5 MCG PO UD, (Reported) Loratadine (Claritin), 10 MG PO DAILY, (Reported) Montelukast Sodium (Montelukast Sodium), 10 MG OR DAILY, (Reported) Pancreatic Enzymes (Creon), 6,000 UNIT PO TID, (Reported) Miscellaneous Medications Famotidine (Gnp Acid Chairman & Ceo Maximum), 20 MG PO, (Reported) Famotidine (Pepcid Tablet), 40 MG GT, (Reported) Fluticasone-Salmeterol (Wixela Inhub 100-50 Mcg/Dose), Unknown Dose IN, (Reported) Discharge Statement: "Patient was advised to return to the ER or call 911 if any headaches, dizziness, shortness of breath, chest pain, abdominal pain, bleeding, fevers, or worsening of medical condition. Patient was counseled about treatment plan, medications, possible side effects, patientverbalized understanding. All questions were answered to the best of my ability. This discharge took greater then 30 minutes in planning, reviewing documentation, counseling the patient, and discussing with other team members." ASSESSMENT ASSESSMENT Hospital Course The patient arrived for a elective spine surgery with Dr. BANERJEE. Surgery went as planned with a plan stay in the ICU postoperatively due to some right side neck swelling. Dr. Krause did come in to the operating room during closure to assess the neck, no active bleed was found. For airway protection the patient remained intubated overnight to reassess bleeding. Patient was extubated on postop day one in the ICU and immediately had firm difficulty talking and swallowing. Patient did state that she felt the ET tube pushing in a right lateral position against the inside of her throat which she described as very painful. NG tube remained in place for several days due to difficulty swallowing. Patient did report an improvement in her preoperative symptoms as in her occipital headaches had resolved and she was slowly improving in the discomfort to her bilateral shoulders. Swelling did start to decrease to the neck on postoperative days two and three however she continued to have difficulty swallowing and voice hoarseness. She was eventually downgraded out to the floor where she was evaluated frequently for swallowing. She was able to get up and ambulate with physical therapy and progressed well. Patient was kept on the [facility] floor for postoperative care, airway protection, and pain management over the course of 7 postoperative days. In a slow progression pattern the patient was able to tolerate a diet, ambulate independently, the pain has been managed with oral analgesics, however her voice is slow to improve. Patient also continues to complain of pain to the right side of her larynx on the inside. The surgical site is well-approximated with sutures, some residual drainage continues from the right in of the surgical site, however it is manageable with daily wound care and dressing changes. Trevor are all in place in the wound edges are well approximated there is no redness no pus drainage or increase in discomfort with palpation. There is slight swelling noted along the actual surgical site line. However the area surrounding the surgical site has greatly improved in swelling. CT scan noncontrast of the soft tissue and neck was ordered prior to discharge Improvement to preoperative symptoms of extremities, strength and motion. There is new post operative pain that is localized to the surgical site. The patient will follow-up with Dr. Banerjee for wound check and staple removal. Assessment Postoperative pain status post cervical spine surgery, muscle spasms to the neck, voice hoarseness, difficulty swallowing. Status post cervical 3-5 anterior cervical diskectomy and fusion Problems: (1) Acute post-operative pain Assessments: Patient has a medication that she has picked up after her preoperative visit (2) Muscle spasms of neck Assessments: Patient has medication as she has already picked up from her preoperative visit (3) Swallowing difficulty Assessments: Continue with pureed diet, small bites of food small quantities of liquids. Patient is able to redemonstrate adequate swallowing of food and liquids at this time without any coughing or choking (4) Voice hoarseness Assessments: We stressed, recommend a humidifier in her room to help prevent dryness of the mucous membranes CARLOS RAE NP Nov 27, 2024 13:15
--- NOTE | 2024-11-27 13:50 | DVH ---
EXAM: CT NECK WITHOUT CONTRAST INDICATION: change in voice, post op evaluation TECHNIQUE: Volumetric multidetector CT images of the cervical soft tissues were obtained without cont rast. All CT scans at this facility use dose modulation, iterative reconstruction, and/or weight base d dosing when appropriate to reduce radiation dose to as low as reasonably achievable. COMPARISON: XY CERVICAL SPINE 3V on DOS: 11/20/24 FINDINGS: [ORBITS, PARANASAL SINUSES, AND SKULL BASE]: Normal. [NASOPHARYNX: Normal. [SUPRAHYOID NECK]: Postsurgical changes with overlying surgical colt and areas soft tissue thicken ing/ hematoma measuring 1.9 x 2.9 cm deep to the surgical incision overlying the left platysma muscle . Asymmetric thickening of the left submandibular gland. Minimal prevertebral edema, not unexpected f or recent postoperative change [INFRAHYOID NECK]: Symmetric thickening of bilateral vocal cords [THYROID]: Normal appearance of the thyroid gland. [LYMPH NODES]: There is no pathologically enlarged or necrotic lymph nodes. [VASCULATURE STRUCTURES]: Vascular calcifications. [OTHER]: Mild paraseptal emphysema. The limited visualized portions of the brain are unremarkable. Po stsurgical changes related to prior anterior cervical discectomy and fusion IMPRESSION: 1. Postsurgical changes with overlying surgical colt and areas soft tissue thickening/ hematoma me asuring 1.9 x 2.9 cm deep to the surgical incision overlying the left platysma muscle. 2. Asymmetric thickening of the left submandibular gland. 3. Symmetric thickening of bilateral vocal cords. 4. Mild prevertebral edema
--- NOTE | 2024-11-27 15:43 | DVHPN2 ---
Progress Note - Dictate Date Seen: Nov 27, 2024 Medical Necessity Reason Pt with a Central, PICC or Fol: No vital signs Vital Sign Date Time Temp Pulse Resp B/P (MAP) Pulse Ox O2 Delivery O2 Flow Rate FiO2 11/27/24 12:23 97.8 116 18 116/71 (86) 98 97.8 11/27/24 08:00 Room Air* 0 21 Total Intake and Output 11/26/24 11/26/24 11/27/24 15:00 23:00 07:00 Intake Total 1000 ml 1150 ml 350 ml Output Total 1500 ml 2500 ml Balance 1000 ml -350 ml -2150 ml medications Current Medications Medications Dose Ordered Sig/Garrick Route Start Time Stop Time Status Last Admin Dose Admin Dextrose/Sodium Chloride 1,000 ml @ 100 mls/hr Q10H IV 11/20/24 13:30 11/27/24 05:13 100 MLS/HR Ondansetron HCl 4 mg Q4HP PRN IV 11/20/24 13:30 11/21/24 14:22 4 MG Acetaminophen 650 mg Q6HP PRN PO 11/20/24 13:30 Acetaminophen/ Hydrocodone Bitart 1 tab Q6HP PRN PO 11/20/24 13:30 11/21/24 12:38 1 TAB Morphine Sulfate 1 mg Q4HP PRN IV 11/20/24 13:30 Nitroglycerin 0.4 mg Q5MINP PRN SL 11/20/24 13:30 Morphine Sulfate 2 mg Q30M PRN IV 11/20/24 13:30 Docusate Sodium 100 mg DAILY PO 11/21/24 10:00 11/27/24 09:32 100 MG Loratadine 10 mg DAILY PO 11/21/24 10:00 11/27/24 09:31 10 MG Montelukast Sodium 10 mg DAILY PO 11/21/24 10:00 11/27/24 09:31 10 MG Patient Own Medication 10 mg DAILY PO 11/21/24 10:00 UNV Patient Own Medication 10 mg DAILY PO 11/21/24 10:00 Amlodipine Besylate 10 mg DAILY PO 11/21/24 10:00 11/27/24 09:32 10 MG Alprazolam 1 mg HS PO 11/21/24 22:00 11/26/24 21:07 1 MG Famotidine 40 mg Q24H PO 11/21/24 22:00 11/26/24 21:07 40 MG Throat Lozenges 1 david Q2HP PRN MT 11/22/24 17:15 11/26/24 09:29 1 DAVID Cyclobenzaprine HCl 10 mg TID@0500,1300,2100 PO 11/23/24 21:00 11/27/24 13:45 10 MG Levothyroxine Sodium 100 mcg DAILY@0600 PO 11/26/24 06:00 11/27/24 05:11 100 MCG Patient Own Medication 5 mcg DAILY@0600 PO 11/26/24 06:00 11/27/24 05:11 5 MCG laboratory and microbiology Laboratory Tests 11/21/24 02:52 Test 11/21/24 02:52 Range/Units Serum Glucose 195 H 74-106 mg/dL Assessment/Plan acute hypoxemic resp failure copd/asthma atelectases neck swelling s/p cervical vertebral fusion patient seen and examined events low oxygen requirements on room air no distress labs and imaging reviewed management incent spirometry cont pain control IV fluids monitor labs renal function diet prophylaxis dvt proph full code okay to discharge from pulmonary standpoint Dietary Evaluation Review Comments: 1. If EN/GI accessible, TF, Vital high Protein 45ml/hr 94g Protein, 1080kcal, 903ml free water 2, If EN not feasible and GI unaccessible, TPN per pharmacy to meet at least 75% of her protein and energy needs. 3. Advance to Regular diet after passing RN PROGRESSIVE CARE eval Expected Outcomes/Goals: Off Vent, advance to diet Plan discussed with: Patient JANE GAGNON MD Nov 27, 2024 15:43
== END 2024-11-27 16:55 | disposition home health service (06) | DRG 471 ==
LOC: SUR 10:09 → OVERFLOW 13:29 → ICU CENTRL 15:45 → TELE-CENTR 11-23 02:32 → CENTRAL 11-26 16:43
PROVIDERS: ADMIT Orthopaedic Surgery; ATTEND Orthopaedic Surgery
PROC: 01N10ZZ Release Cervical Nerve, Open Approach (ICD-10-PCS; 2024-11-20)
PROC: 5A1945Z Respiratory Ventilation, 24-96 Consecutive Hours (ICD-10-PCS; 2024-11-20)
PROC: 0BH17EZ Insertion of Endotracheal Airway into Trachea, Via Natural or Artificial Opening (ICD-10-PCS; 2024-11-20)
PROC: 00NW0ZZ Release Cervical Spinal Cord, Open Approach (ICD-10-PCS; 2024-11-20)
PROC: 0RT30ZZ Resection of Cervical Vertebral Disc, Open Approach (ICD-10-PCS; 2024-11-20)
PROC: 4A11X4G Monitoring of Peripheral Nervous Electrical Activity, Intraoperative, External Approach (ICD-10-PCS; 2024-11-20)
PROC: 0RG20A0 Fusion of 2 or more Cervical Vertebral Joints with Interbody Fusion Device, Anterior Approach, Anterior Column, Open Approach (ICD-10-PCS; principal; 2024-11-20 11:18)
DX: M48.02 Spinal stenosis, cervical region (principal); J96.01 Acute respiratory failure with hypoxia; J44.1 Chronic obstructive pulmonary disease with (acute) exacerbation; J98.11 Atelectasis; M50.021 Cervical disc disorder at C4-C5 level with myelopathy; M50.01 Cervical disc disorder with myelopathy, high cervical region; E03.9 Hypothyroidism, unspecified; I73.00 Raynaud's syndrome without gangrene; R13.10 Dysphagia, unspecified; M50.121 Cervical disc disorder at C4-C5 level with radiculopathy; M50.11 Cervical disc disorder with radiculopathy, high cervical region; E78.5 Hyperlipidemia, unspecified; I10 Essential (primary) hypertension; Z79.82 Long term (current) use of aspirin; Z79.899 Other long term (current) drug therapy; G89.18 Other acute postprocedural pain
CPT/HCPCS: 36415; 36600; 70490; 71045; 72040; 76000; 80048; 82805; 83735; 85025; 86850; 86900; 86901; 87081; 92610; 94002; 94003; 97110; 97116; 97163; 97530; G0378; J1100; J1956; J2250; J2405; J2704; J7042